=== PATIENT | male | born 1945 | race Caucasian/White ===

== ENCOUNTER 2019-12-07 11:52 | Inpatient (IN) ==
--- NOTE | 2019-12-07 12:11 | Emergency Department Note ---
Impression & Plan Atrial fibrillation with rapid ventricular response, COVID-19 ED Provider Note NAME: KEITH SHAIKH JR AGE: 74 SEX: M : 1945 ARRIVES VIA: Walk-In INFORMANT: Patient ED PROVIDER(S): Chepe Nunez DO CHIEF COMPLAINT: Short of breath HPI: Patient is a 74-year-old male who presents the ER for shortness of breath. This started a week ago. He feels very tired and rundown. With any exertion he becomes more short of breath. He is unable to lie flat. He denies any cough or runny nose. No chest pain. No belly pain. No nausea vomiting or diarrhea. No swelling in the legs. No other exacerbating or remitting factors. Was a previous smoker. No history of A. fib. He was seen by his PCP Wednesday and presented again today and had a EKG which showed A. fib with RVR was referred into the ER. ROS: See above HPI for pertinent positives & negatives. A total of 10 systems reviewed and were otherwise negative. PAST MEDICAL HISTORY:See Below PAST SURGICAL HISTORY:See Below FAMILY HISTORY:See Below SOCIAL HISTORY:See Below HOME MEDICATIONS:See Below ALLERGIES:See Below VITALS:See Below PHYSICAL EXAMINATION: GENERAL: Sitting up in bed, alert, well appearing, well nourished, no distress, non-toxic EYE EXAM: normal conjunctiva. OROPHARYNX: no exudate, no erythema, lips, buccal mucosa, and tongue normal and mucous membranes are moist NECK: supple, no nuchal rigidity, no adenopathy, non-tender LUNGS: Clear to auscultation. Normal chest wall mechanics HEART: Tachycardic and irregular regular S1 normal and S2 normal ABDOMEN: abdomen soft, non-tender, normo-active bowel sounds, no masses, no rebound or guarding. BACK: Back is symmetrical on inspection and there is no deformity, no midline tenderness, no CVA tenderness. SKIN: no rashes and no bruising UPPER EXTREMITIES: upper extremities are grossly normal. LOWER EXTREMITIES: No pitting edema. NEURO EXAM: Normal sensorium, cranial nerves II-XII grossly intact, normal speech, no gross weakness of arms, no gross weakness of legs. MEDICAL DECISION MAKING: Patient is a 74-year-old male who presents the ER to be in A. fib with RVR. IV was established blood work was obtained. Labs show no significant leukocytosis or anemia. INR was unremarkable. BMP with mild hyponatremia. LFTs bilirubin was unremarkable. Troponin was detectable but not positive. Lipase was normal. Initial EKG showed a left bundle branch block. No previous were able to be pulled up. I received a call from cardiology Dr. Corcoran who was concerned that this gentleman was having a STEMI from [facility] as he was reading the EKG from the office. Called Dr. Teran who evaluated the patient at bedside. The patient has not been having any chest pain. He was placed on a Cardizem drip and given a bolus. Heart rate trended down. Patient was evaluated by Dr. Richard. He was COVID positive. Chest x-ray was unremarkable. Discussed with the hospitalist patient was admitted for further work-up. Previous EKGs were reviewed from [facility] with the last one being performed in 2011 which had no left bundle. He was not taken to the [facility] emerg[facility] as symptoms have been prese nt for over a week and troponins were not elevated. 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 He was also placed on heparin drip and bolus after he declined any bleeding risk factors which were discussed at length at bedside. Was wearing appropriate PPE including N 95 and face protection throughout the entire stay. Triage Nursing notes reviewed. Prior medical records reviewed Vital Signs: reviewed and remarkable for tachycardic Differential diagnosis: Differential diagnoses includes but is not limited to acute coronary syndrome, myocardial infarction, pericarditis, pulmonary embolus, aortic dissection, pneumonia, pneumothorax, musculoskeletal, shingles, esophageal. ER treatment provided: See below Diagnostics interpreted by me: ECG: A. fib RVR rate of 134 Left axis Left bundle branch block ST depressions in the lateral leads Prolonged QTC Cardiac Monitoring: An order was placed for continuous cardiac monitoring. The monitor shows a rate of 135 with A. fib rhythm. Laboratory studies: As stated above and show below. Imaging studies: Portable AP upright 1 view of the chest shows no focal infiltrate. Consultation(s): Discussed with Dr. Teran who presented at bedside. Discussed with Dr. Richard who evaluated the patient. ED COURSE: Procedures: none Critical Care: I have personally spent 75 minutes of critical care time in the direct manage ment of this patient. This includes bedside care, interpretation of diagnostic studies, and testing, discussion with consultants, patient, and family members, and other required patient management activities. This 75 minutes is in excess of all separately billable procedures. Past Med/Surg History Medical History Benign prostatic hyperplasia Hypertension Surgical History Status post hernia repair Status post tonsillectomy Family History (Updated 12/07/19 @ 16:24 by Aguilar Valadez MD) Mother Heart disease Father Coronary heart disease Uncle Coronary heart disease Social History Smoking Status: Former smoker Tobacco Type: Cigarettes and Pipe Hx Alcohol Use: Yes Alcohol type: beer Hx Substance Use: No Preferred Language: Nepali Communication Ability: Effective Music Library Assistant Required: No Beliefs That Will Affect Care: None Current Living Situation: Family Current Living Situation Comment: pt lives with brother Other Information That Helps Us Care for You: No Feels Safe at Home: Yes Safety Concerns: Feels Safe At This Time Assistive Devices: Denture - Upper and Glasses Allergies Allergies Allergy/AdvReac Type Severity Reaction Status Date / Time No Known Allergies Allergy Unverified 12/07/19 13:43 Home Meds Home Medications Medication Instructions Recorded Confirmed lisinopril-hydrochlorothiazide 1 tab PO PM #0 tab 03/03/12 12/07/19 tamsulosin 0.4 mg PO PM #0 cap 03/03/12 12/07/19 multivitamin 1 tab PO PM #0 tab 03/15/12 12/07/19 meloxicam 15 mg PO PM 12/07/19 12/07/19 vitamin E 1 tab PO PM 12/07/19 12/07/19 Results & Data (ED) Vital Signs Vital Signs - 24 hr 12/07/19 11:55 12/07/19 12:02 12/07/19 12:07 Temperature 36.4 C L Temperature Source Oral Pulse Rate 138 H 136 H 129 H Pulse Rate from SpO2 Sensor Respiratory Rate 24 33 H 26 H Respiratory Effort / Characteristics Non-Labored Respiratory Depth Normal Blood Pressure 147/97 H 148/120 H Blood Pressure Mean 113 134 Pulse Oximetry 100 Oxygen Delivery Method Room Air Sepsis Recent Fever Within 48 Hours No Sepsis New/Unexplained Change in Mental Status N/A Sepsis Action Taken by Nursing No Action Required 12/07/19 12:10 12/07/19 12:20 12/07/19 12:30 Temperature Temperature Source Pulse Rate 121 H 147 H 134 H Pulse Rate from SpO2 Sensor 122 H Respiratory Rate 34 H 27 H 38 H Respiratory Effort / Characteristics Respiratory Depth Blood Pressure Blood Pressure Mean Pulse Oximetry 90 Oxygen Delivery Method Sepsis Recent Fever Within 48 Hours Sepsis New/Unexplained Change in Mental Status Sepsis Action Taken by Nursing 12/07/19 12:40 12/07/19 12:47 12/07/19 12:50 Temperature Temperature Source Pulse Rate 145 H 114 H 109 H Pulse Rate from SpO2 Sensor Respiratory Rate 30 H 33 H 24 Respiratory Effort / Characteristics Respiratory Depth Blood Pressure 98/87 L 108/79 Blood Pressure Mean 89 82 Pulse Oximetry 97 Oxygen Delivery Method Room Air Sepsis Recent Fever Within 48 Hours Sepsis New/Unexplained Change in Mental Status Sepsis Action Taken by Nursing 12/07/19 12:51 12/07/19 13:00 12/07/19 13:06 Temperature Temperature Source Pulse Rate 103 H 104 H 101 H Pulse Rate from SpO2 Sensor 104 H Respiratory Rate 26 H 25 H 28 H Respiratory Effort / Characteristics Respiratory Depth Blood Pressure 129/83 Blood Pressure Mean 102 Pulse Oximetry 94 Oxygen Delivery Method Sepsis Recent Fever Within 48 Hours Sepsis New/Unexplained Change in Mental Status Sepsis Action Taken by Nursing 12/07/19 13:10 12/07/19 13:15 12/07/19 13:20 Temperature Temperature Source Pulse Rate 109 H 94 H 109 H Pulse Rate from SpO2 Sensor Respiratory Rate 30 H 24 30 H Respiratory Effort / Characteristics Respiratory Depth Blood Pressure 126/100 Blood Pressure Mean 109 Pulse Oximetry Oxygen Delivery Method Sepsis Recent Fever Within 48 Hours Sepsis New/Unexplained Change in Mental Status Sepsis Action Taken by Nursing 12/07/19 13:30 12/07/19 13:31 12/07/19 13:40 Temperature Temperature Source Pulse Rate 114 H 110 H 132 H Pulse Rate from SpO2 Sensor 70 Respiratory Rate 19 27 H 25 H Respiratory Effort / Characteristics Respiratory Depth Blood Pressure 106/82 Blood Pressure Mean 84 Pulse Oximetry Oxygen Delivery Method Sepsis Recent Fever Within 48 Hours Sepsis New/Unexplained Change in Mental Status Sepsis Action Taken by Nursing 12/07/19 13:44 12/07/19 13:50 12/07/19 14:00 Temperature Temperature Source Pulse Rate 121 H 110 H 118 H Pulse Rate from SpO2 Sensor 94 H Respiratory Rate 27 H 29 H 22 Respiratory Effort / Characteristics Respiratory Depth Blood Pressure 128/93 116/81 Blood Pressure Mean 97 85 Pulse Oximetry Oxygen Delivery Method Sepsis Recent Fever Within 48 Hours Sepsis New/Unexplained Change in Mental Status Sepsis Action Taken by Nursing 12/07/19 14:01 12/07/19 14:10 12/07/19 14:15 Temperature Temperature Source Pulse Rate 100 H 123 H Pulse Rate from SpO2 Sensor Respiratory Rate 23 22 27 H Respiratory Effort / Characteristics Respiratory Depth Blood Pressure 128/93 Blood Pressure Mean 99 Pulse Oximetry Oxygen Delivery Method Sepsis Recent Fever Within 48 Hours Sepsis New/Unexplained Change in Mental Status Sepsis Action Taken by Nursing 12/07/19 14:16 12/07/19 14:20 12/07/19 14:30 Temperature Temperature Source Pulse Rate 124 H 127 H Pulse Rate from SpO2 Sensor 107 H 122 H 131 H Respiratory Rate 25 H 27 H Respiratory Effort / Characteristics Respiratory Depth Blood Pressure 143/99 H Blood Pressure Mean 119 Pulse Oximetry 92 94 97 Oxygen Delivery Method Sepsis Recent Fever Within 48 Hours Sepsis New/Unexplained Change in Mental Status Sepsis Action Taken by Nursing 12/07/19 14:31 Temperature Temperature Source Pulse Rate Pulse Rate from SpO2 Sensor 145 H Respiratory Rate Respiratory Effort / Characteristics Respiratory Depth Blood Pressure Blood Pressure Mean Pulse Oximetry 91 Oxygen Delivery Method Sepsis Recent Fever Within 48 Hours Sepsis New/Unexplained Change in Mental Status Sepsis Action Taken by Nursing Laboratory Data Result diagrams: 12/07/19 12:56 12/07/19 12:56 Lab Results 12/07/19 12/07/19 12/07/19 Range/Units 12:56 12:56 12:56 WBC 6.21 (4.8-10.8) K/uL RBC 4.12 L (4.7-6.1) M/uL Hgb 13.2 L (14.0-18.0) g/dL Hct 38.3 L (42-52) % MCV 93.0 (80-100) fL MCH 32.0 (25-34) pg MCHC 34.5 (32-36) g/dL RDW Std Deviation 44.4 (36.4-46.3) fL RDW Coeff of Shabnam 13.0 (11.5-14.5) % Plt Count 242 (130-400) K/uL MPV 10.1 (7.4-10.4) fL Immature Gran % (Auto) 0.2 % Neut % (Auto) 80.9 % Lymph % (Auto) 7.4 % [place] % (Auto) 11.3 % Eos % (Auto) 0.0 % Baso % (Auto) 0.2 % Neut # (Auto) 5.03 (1.4-6.5) K/uL Lymph # (Auto) 0.46 L (1.2-3.4) K/uL [place] # (Auto) 0.70 H (0.11-0.59) K/uL Eos # (Auto) 0.00 (0-0.5) K/uL Baso # (Auto) 0.01 (0-0.2) K/uL Immature Gran # (Auto) 0.01 (0.00-0.02) K/uL PT 11.0 (9.0-12.0) Seconds INR 1.0 (0.9-1.1) APTT 35.2 H (21.0-31.0) Seconds PTT Ratio 1.3 Sodium 130 L (136-145) mmol/L Potassium 4.8 (3.5-5.1) mmol/L Chloride 100 (98-107) mmol/L Carbon Dioxide 22 (21-32) mmol/L Anion Gap 8.0 (3-11) BUN 20 H (7-18) mg/dl Creatinine 0.89 (0.6-1.4) mg/dl Est Cr Clr Drug Dosing 68.7 ml/min Est GFR ( Amer) 99.0 Est GFR (Non-Af Amer) 85.4 BUN/Creatinine Ratio 22.0 H (10-20) Glucose 99 (70-99) mg/dl Calcium 9.4 (8.5-10.1) mg/dl Total Bilirubin 0.5 (0.2-1) mg/dl AST 55 H (15-37) U/L ALT 58 (12-78) U/L Alkaline Phosphatase 99 (45-117) U/L Troponin I 0.034 (0-0.045) ng/ml Total Protein 7.1 (6.4-8.2) gm/dl Albumin 3.6 (3.4-5.0) gm/dl Globulin 3.5 (2.5-4.0) gm/dl Albumin/Globulin Ratio 1.0 (0.9-2) Lipase 71 L (73-393) U/L COVID-19 Eval Order Hepatitis C Ab Screen (Neg) SARS-CoV-2, RNA, NAAT (NEGATIVE) 12/07/19 12/07/19 12/07/19 Range/Units 13:02 13:35 13:35 WBC (4.8-10.8) K/uL RBC (4.7-6.1) M/uL Hgb (14.0-18.0) g/dL Hct (42-52) % MCV (80-100) fL MCH (25-34) pg MCHC (32-36) g/dL RDW Std Deviation (36.4-46.3) fL RDW Coeff of Shabnam (11.5-14.5) % Plt Count (130-400) K/uL MPV (7.4-10.4) fL Immature Gran % (Auto) % Neut % (Auto) % Lymph % (Auto) % [place] % (Auto) % Eos % (Auto) % Baso % (Auto) % Neut # (Auto) (1.4-6.5) K/uL Lymph # (Auto) (1.2-3.4) K/uL [place] # (Auto) (0.11-0.59) K/uL Eos # (Auto) (0-0.5) K/uL Baso # (Auto) (0-0.2) K/uL Immature Gran # (Auto) (0.00-0.02) K/uL PT (9.0-12.0) Seconds INR (0.9-1.1) APTT (21.0-31.0) Seconds PTT Ratio Sodium (136-145) mmol/L Potassium (3.5-5.1) mmol/L Chloride (98-107) mmol/L Carbon Dioxide (21-32) mmol/L Anion Gap (3-11) BUN (7-18) mg/dl Creatinine (0.6-1.4) mg/dl Est Cr Clr Drug Dosing ml/min Est GFR ( Amer) Est GFR (Non-Af Amer) BUN/Creatinine Ratio (10-20) Glucose (70-99) mg/dl Calcium (8.5-10.1) mg/dl Total Bilirubin (0.2-1) mg/dl AST (15-37) U/L ALT (12-78) U/L Alkaline Phosphatase (45-117) U/L Troponin I (0-0.045) ng/ml Total Protein (6.4-8.2) gm/dl Albumin (3.4-5.0) gm/dl Globulin (2.5-4.0) gm/dl Albumin/Globulin Ratio (0.9-2) Lipase (73-393) U/L COVID-19 Eval [facility] Ab Screen Neg (Neg) SARS-CoV-2, RNA, NAAT POSITIVE A* (NEGATIVE) Administered Medications Diltiazem HCl 125 mg/ Dextrose 125 mls @ 10 mls/hr IV .[id number] [facility]; Protocol Stop: 01/06/20 12:29 Last Titration: 12/07/19 18:57 Dose: 5 mg/hr, 5 mls/hr Documented by: [id number] Cosigned by: [id number] Titration: 12/07/19 16:52 Dose: 10 mg/hr, 10 mls/hr Documented by: [id number] Cosigned by: [id number] Titration: 12/07/19 14:04 Dose: 7.5 mg/hr, 7.5 mls/hr Documented by: [id number] Cosigned by: [id number] Admin: 12/07/19 13:00 Dose: 5 mg/hr, 5 mls/hr Documented by: [id number] Cosigned by: [id number] Heparin Sodium/Dextrose (Heparin Sodium/Dextrose) 25,000 units in 500 mls @ 16 mls/hr IV .Q24H [facility]; Protocol Stop: 01/06/20 14:14 Last Admin: 12/07/19 14:46 Dose: 800 units/hr, 16 mls/hr Documented by: [id number] Cosigned by: [id number] Discontinued Medications Diltiazem HCl (Diltiazem Hcl 5 Mg/Ml 5 Ml Vial) 10 mg IV NOW STA Stop: 12/07/19 12:26 Last Admin: 12/07/19 12:42 Dose: 10 mg Documented by: [id number] Cosigned by: [id number] Heparin Sodium (Porcine) (Heparin Sod (Porcine) 1000 Unit/Ml 10 Ml Vial) Confirm Administered Dose 10,000 units .ROUTE .STK-MED ONE Stop: 12/07/19 14:27 Last Admin: 12/07/19 14:46 Dose: 4,000 units Documented by: [id number] Cosigned by: [id number] Heparin Sodium/Dextrose (Heparin Iv Low Dose With Bolus) 1 ea IV NOW STA; Protocol Stop: 12/07/19 14:15 Last Admin: 12/07/19 14:46 Dose: 1 ea Documented by: [id number] Digoxin 125 mcg/ Syringe 10 mls @ 2 mls/min IV TODAY@1645 ONE Stop: 12/07/19 16:49 Last Admin: 12/07/19 17:36 Dose: 2 mls/min Documented by: [id number] Metoprolol Tartrate (Metoprolol Tartrate 25 Mg Tab) 25 mg PO NOW ONE Stop: 12/07/19 15:32 Last Admin: 12/07/19 17:37 Dose: 25 mg Documented by: [id number] Miscellaneous (Stat Iv Infusion Titration Per Protocol) 1 ea N/A NOW STA Stop: 12/07/19 12:26 Last Admin: 12/07/19 13:01 Dose: 1 ea Documented by: [id number] Discharge Plan Visit Data Chief Complaint: Arrhythmia/Palpitations Stated Complaint: NEW ONSET OF AFIB SENT BY DR ED Provider: Chepe Nunez Discharge Problem: Atrial fibrillation with rapid ventricular response, COVID-19 Patient Disposition: Admitted As Inpatient Discharge Instructions Interventions: ED Discharge Assessment Last Done: 12/07/19 15:42
[2019-12-07] MEDS ORDERED: dilTIAZem HCl 5 MG/ML 5 ML VIAL IV STA (12:25)
[2019-12-07] MEDS ORDERED: STAT IV Infusion **Titration per Protocol STA (12:25)
[2019-12-07] MEDS: dilTIAZem HCL 125 MG in DEXTROSE 5% 100 ML IV SCH (13:00)
--- NOTE | 2019-12-07 13:04 | XRay Report ---
XR chest 1V portable HISTORY: Atypical Chest Pain COMPARISON: None. FINDINGS: Cardiac silhouette is mildly enlarged. Calcified granuloma at the right lung base. No focal lung consolidations to suggest pneumonia. No evidence for pulmonary edema. Advanced degenerative miryam nges within the right glenohumeral joint. No pleural effusions. No pneumothorax. IMPRESSION: Mild cardiomegaly. Otherwise, no acute process within the chest. ACT 112: Negative or not required by law. Electronically signed by: Henry Briones M.D. 12/07/2019 1:03 PM
[2019-12-07 13:16] LABS: Basophils # (auto) 0.01 K/uL (0-0.2); Basophils % (auto) 0.2 %; Hematocrit (blood only) 38.3 % (42-52); Hemoglobin 13.2 g/dL (14.0-18.0); Immature Granulocytes # (auto) 0.01 K/uL (0.00-0.02); Immature Granulocytes % (auto) 0.2 %; Lymphocytes # (auto) 0.46 K/uL (1.2-3.4); Lymphocytes % (auto) 7.4 %; Mean Corpuscular Hgb Conc 34.5 g/dL (32-36); Mean Platelet Volume 10.1 fL (7.4-10.4); Monocytes % (auto) 11.3 %; Neutrophils # (auto) 5.03 K/uL (1.4-6.5); Neutrophils % (auto) 80.9 %; Platelet Count 242 K/uL (130-400); RDW Standard Deviation 44.4 fL (36.4-46.3); Red Blood Count 4.12 M/uL (4.7-6.1); White Blood Count 6.21 K/uL (4.8-10.8)
[2019-12-07 13:25] LABS: Partial Thromboplastin Ratio 1.3; Partial Thromboplastin Time 35.2 Seconds (21.0-31.0)
[2019-12-07 13:36] LABS: Albumin Level 3.6 gm/dl (3.4-5.0); Calcium 9.4 mg/dl (8.5-10.1); Creatinine Clr Calc Pharmacy 68.7 ml/min; Est GFR (Non-African American) 85.4; Potassium 4.8 mmol/L (3.5-5.1)
[2019-12-07 13:43] LABS: Bilirubin,Total 0.5 mg/dl (0.2-1); Globulin 3.5 gm/dl (2.5-4.0); Total Protein 7.1 gm/dl (6.4-8.2); Troponin I 0.034 ng/ml (0-0.045)
[2019-12-07] MEDS ORDERED: Heparin IV Low Dose WITH Bolus IV STA (14:14)
[2019-12-07] MEDS ORDERED: HEPARIN SOD (PORCINE) 1000 UNIT/ML 10 ML VIAL ONE (14:26)
[2019-12-07] MEDS ORDERED: Heparin BOLUS **ED Use Only IV STA (14:28)
[2019-12-07] MEDS: HEPARIN SODIUM/DEXTROSE 25,000 UNITS/500 ML BAG IV SCH (14:46)
[2019-12-07] MEDS ORDERED: METOPROLOL TARTRATE 25 MG TAB PO ONE (15:31)
--- NOTE | 2019-12-07 15:51 | History & Physical Report ---
Date of Service December 07, 2019 Assessment & Plan (1) Atrial fibrillation with rapid ventricular response: Presented with atrial fibrillation with rapid ventricular response. History of hypertension; no other history of cardiovascular disease. K normal. Mg and TSH pending. Troponin normal, so acute DC unlikely. Normal RV on echo makes large pulmonary embolism unlikely (but must still consider thromboembolic disease in light of COVID-19 diagnosis). Cardiology consulted. Started on diltiazem infusion in ED for rate control; start metoprolol and wean off diltiazem. [id number] score = 3. 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 (2) Cardiomyopathy: Echo demonstrated global hypokinesis left ventricular with LVEF of 20%. COVID-related myocarditis unlikely with normal troponin. May have tachycardia-mediated cardiomyopathy. Management of AF as noted above. Continue lisinopril. Diuretic therapy per Cardiology. (3) Hypertension: History of hypertension treated with lisinopril + HCTZ. Now with AF and cardiomyopathy. Starting metoprolol for rate control. Continue lisinopril. (4) COVID-19: SARS-CoV-2 PCR performed as preop screen for possible cardiac cath and was positive. Onset dyspnea and mild cough about 7 days prior to admission. No fever. Lymphopenia (460) consistent with COVID-19. ? mild interstitial prominence on chest x-ray. Dyspnea and tachypnea could be secondary to COVID-19 or cardiac issues. O2 sats fluctuated in ED between 90 and 100% on RA. Does not appear to meet criteria for COVID-specific therapies at this time. Check CRP, procalcitonin, BNP, ferritin, D-dimer with next labs. Consult ID for their input. (5) Benign prostatic hyperplasia: Continue tamsulosin. (6) DVT prophylaxis: IV heparin initially for atrial fibrillation. (7) Discharge planning issues: Anticipated discharge to home. Family Medicine follow-up with Dr. Cam. Follow-up with [facility]iology. History of Present Illness Chief Complaint: shortness of breath Primary Care Provider: Mark Cam MD 74 YO male followed by Dr. Cam for Family Medicine. History of hypertension and other problems noted below. Strong family history of coronary artery disease. He was in his usual state of health until 11/29 when he developed some dyspnea. Dyspnea worsened and he developed a mild nonproductive cough. No fever. He was prescribed azithromycin on 12/03 for suspected bronchitis. Dyspnea has worsened. Now experiencing both orthopnea and dyspnea with minimal exertion. No chest pain. No dependent edema. ? mild palpitations. Persistent nonproductive cough. Seen in clinic today and found to be in new-onset atrial fibrillation. Referred to ED for evaluation and Cardiology was consulted. SARS-CoV-2 PCR was performed as preop screening in case cardiac cath was indicated; it was positive. No known exposure to COVID-19. Allergies Allergy/AdvReac Type Severity Reaction Status Date / Time No Known Allergies Allergy Unverified 12/07/19 13:43 Home Medications Home Medications Medication Instructions Recorded Confirmed Type lisinopril-hydrochlorothiazide 1 tab PO PM #0 tab 03/03/12 12/07/19 History tamsulosin 0.4 mg PO PM #0 cap 03/03/12 12/07/19 History multivitamin 1 tab PO PM #0 tab 03/15/12 12/07/19 History meloxicam 15 mg PO PM 12/07/19 12/07/19 History vitamin E 1 tab PO PM 12/07/19 12/07/19 History Past Med/Surg History Medical History Benign prostatic hyperplasia Hypertension Surgical History Status post hernia repair Status post tonsillectomy Family History (Updated 12/07/19 @ 16:24 by Aguilar Valadez MD) Mother Heart disease Father Coronary heart disease Uncle Coronary heart disease Social History Smoking Status: Former smoker Tobacco Type: Cigarettes and Pipe Hx Alcohol Use: Yes Alcohol type: beer Hx Substance Use: No Preferred Language: Greenlandic Communication Ability: Effective 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 Beliefs That Will Affect Care: None Current Living Situation: Family Current Living Situation Comment: pt lives with brother Other Information That Helps Us Care for You: No Feels Safe at Home: Yes Safety Concerns: Feels Safe At This Time Assistive Devices: Denture - Upper and Glasses Review of Systems Constitutional: + malaise and + weight loss (has lost about 8 lbs over past year); no fever Ear, Nose, Mouth, Throat: no sore throat Respiratory: as per Subjective / HPI Cardiovascular: as per Subjective / HPI Gastrointestinal: no nausea, no vomiting, no constipation, no diarrhea/loose stools, no blood in stools and no melena Genitourinary: + nocturia (2x); no dysuria Musculoskeletal: + joint pain; no myalgia Integumentary: no rash and no new lesions Neurologic: no headache(s) Endocrine: no polydipsia and no polyuria Hematologic / Lymphatic: no easy bleeding, no easy bruising and no lymphadenopathy Physical Exam Constitutional: WD/WN, vitals as above no acute distress Eyes: PERRL, conjunctivae normal, anicteric sclerae ENMT: external ear and nose normal, oropharynx normal Neck: trachea midline, no thyromegaly Respiratory: normal respiratory effort, lungs clear to auscultation Cardiovascular: Rate/Rhythm: + tachycardic and + irregularly irregular Heart Sounds: + murmur (II/ sys murmur at base and LSB); no gallop and no cardiac rub Vessels: no JVD Extremities: normal capillary refill; no calf tenderness and no edema Gastrointestinal (Abdomen): normal bowel sounds, soft, nontender, no hepatosplenomegaly Musculoskeletal: Head/Neck/Chest: neck supple Extremities: strength 5/5 throughout; no cyanosis and no clubbing Skin: no rashes, warm and dry Neurologic: PERRL, EOMI no facial palsy no dysarthria or aphasia patellar DTR's 2/2 bilat Psychiatric: Orientation: alert and oriented x 3 Affect: euthymic affect Lymphatic: no cervical lymphadenopathy Results & Data Results & Data ([facility]) Vital Signs (Past 12 Hours) Vital Signs Temp Pulse Resp BP Pulse Ox 12/07/19 15:44 112 H 31 H 113/83 93 12/07/19 15:30 124 H 27 H 91/85 L 92 12/07/19 15:15 118 H 33 H 147/92 H 96 12/07/19 15:04 135 H 24 131/106 H 12/07/19 15:00 111 H 27 H 141/101 H 12/07/19 14:50 123 H 28 H 12/07/19 14:46 127 H 25 H 140/99 12/07/19 14:40 120 H 27 H 12/07/19 14:31 91 12/07/19 14:30 143/99 H 97 12/07/19 14:20 127 H 27 H 94 12/07/19 14:16 124 H 25 H 92 12/07/19 14:15 123 H 27 H 128/93 12/07/19 14:10 22 12/07/19 14:01 100 H 23 12/07/19 14:00 118 H 22 116/81 12/07/19 13:50 110 H 29 H 12/07/19 13:44 121 H 27 H 128/93 12/07/19 13:40 132 H 25 H 12/07/19 13:31 110 H 27 H 12/07/19 13:30 114 H 19 106/82 12/07/19 13:20 109 H 30 H 12/07/19 13:15 94 H 24 126/100 12/07/19 13:10 109 H 30 H 12/07/19 13:06 101 H 28 H 129/83 12/07/19 13:00 104 H 25 H 94 12/07/19 12:51 103 H 26 H 12/07/19 12:50 109 H 24 108/79 12/07/19 12:47 114 H 33 H 98/87 L 12/07/19 12:40 145 H 30 H 97 12/07/19 12:30 134 H 38 H 90 12/07/19 12:20 147 H 27 H 12/07/19 12:10 121 H 34 H 12/07/19 12:07 129 H 26 H 12/07/19 12:02 136 H 33 H 148/120 H 12/07/19 11:55 36.4 C L 138 H 24 147/97 H 100 Laboratory Results Laboratory Results - last 24 hr 12/07/19 12/07/19 12/07/19 12:56 12:56 12:56 WBC 6.21 RBC 4.12 L Hgb 13.2 L Hct 38.3 L MCV 93.0 MCH 32.0 MCHC 34.5 RDW Std Deviation 44.4 RDW Coeff of Shabnam 13.0 Plt Count 242 MPV 10.1 Immature Gran % (Auto) 0.2 Neut % (Auto) 80.9 Lymph % (Auto) 7.4 [place] % (Auto) 11.3 Eos % (Auto) 0.0 Baso % (Auto) 0.2 Neut # (Auto) 5.03 Lymph # (Auto) 0.46 L [place] # (Auto) 0.70 H Eos # (Auto) 0.00 Baso # (Auto) 0.01 Immature Gran # (Auto) 0.01 PT 11.0 INR 1.0 APTT 35.2 H PTT Ratio 1.3 Sodium 130 L Potassium 4.8 Chloride 100 Carbon Dioxide 22 Anion Gap 8.0 BUN 20 H Creatinine 0.89 Est Cr Clr Drug Dosing 68.7 Est GFR ( Amer) 99.0 Est GFR (Non-Af Amer) 85.4 BUN/Creatinine Ratio 22.0 H Glucose 99 Calcium 9.4 Total Bilirubin 0.5 AST 55 H ALT 58 Alkaline Phosphatase 99 Troponin I 0.034 Total Protein 7.1 Albumin 3.6 Globulin 3.5 Albumin/Globulin Ratio 1.0 Lipase 71 L COVID-19 Eval Order SARS-CoV-2, RNA, NAAT 12/07/19 12/07/19 13:35 13:35 WBC RBC Hgb Hct MCV MCH MCHC RDW Std Deviation RDW Coeff of Shabnam Plt Count MPV Immature Gran % (Auto) Neut % (Auto) Lymph % (Auto) [place] % (Auto) Eos % (Auto) Baso % (Auto) Neut # (Auto) Lymph # (Auto) [place] # (Auto) Eos # (Auto) Baso # (Auto) Immature Gran # (Auto) PT INR APTT PTT Ratio Sodium Potassium Chloride Carbon Dioxide Anion Gap BUN Creatinine Est Cr Clr Drug Dosing Est GFR ( Amer) Est GFR (Non-Af Amer) BUN/Creatinine Ratio Glucose Calcium Total Bilirubin AST ALT Alkaline Phosphatase Troponin I Total Protein Albumin Globulin Albumin/Globulin Ratio Lipase COVID-19 Eval Order Covid19 [facility]Now [facility] SARS-CoV-2, RNA, NAAT POSITIVE A* Diagnostic Findings PORTABLE CHEST X-RAY Reviewed by the undersigned and formally interpreted by Radiology: FINDINGS: Cardiac silhouette is mildly enlarged. Calcified granuloma at the right lung base. No focal lung consolidations to suggest pneumonia. No evidence for pulmonary edema. Advanced degenerative changes within the right glenohumeral joint. No pleural effusions. No pneumothorax. IMPRESSION: Mild cardiomegaly. Otherwise, no acute process within the chest. Electronically signed by: Henry Briones M.D. 12/07/2019 1:03 PM ECG Additional Comments: EKG performed at 1232 reviewed and demonstrated AF at 130 / min, left axis deviation, nonspecific intraventricular conduction delay, nonspecific ST / T- waves changes most pronounces laterally. Code Status & VTE Plan Code Status Advance directives discussed with patient; he believes that he did a living will years ago. He indicates that he would like resuscitation attempted in the event of a cardiopulmonary arrest if there is a reasonable chance of a meaningful recovery. However, he would not want extraordinary measures initiated or continued if prognosis is poor. VTE Prophylaxis Plan VTE Prophylaxis will be ordered: Yes
--- NOTE | 2019-12-07 16:13 | Cardiology Consultation ---
Date of Consultation December 07, 2019 Assessment & Plan (1) Atrial fibrillation with rapid ventricular response: (2) LBBB (left bundle branch block): (3) Left ventricular systolic dysfunction: (4) COVID-19: The patient has received an IV diltiazem infusion, with mild improvement in the ventricular rate down to the low 100s. An echocardiogram was performed revealing severe left ventricular systolic dysfunction, LVEF of less than 20%. The right ventricular chamber size was normal, and with the exception of the interventricular septum, the rest of the right ventricular function is normal without evidence of pulmonary hypertension. Mild mitral regurgitation and mild tricuspid regurgitation present. The patient does not describe symptoms suggestive of unstable angina, and I do not think he is having acute coronary syndrome. Although his troponin is not undetectable, it is elevated to an indeterminate level at 0.034 Ng/ml. Believe that if the patient was having an acute COVID-19 related myocarditis, his troponin would be significantly more elevated. I question if the left ventricular systolic function may not be an acute development, but that perhaps the patient has developed COVID-19 and subsequently went into atrial fibrillation causing an abrupt change in his previously stable clinical status. On my personal inspection of his chest x-ray, he appears to have some fluid in the horizontal fissure, I do not think he has rachelle pulmonary edema or pneumonia. I do not think acute diuresis is indicated at present. I recommend transitioning to oral beta-lizz. Starting with metoprolol tartrate for ease of titration, 25 mg p.o. x1 now, and 12.5 mg p.o. every 6 ho urs thereafter. As beta-lizz is initiated, my hope is to titrate down the diltiazem due to its negative inotropic effects. Further rate control with digoxin will also be considered. Unfractioned heparin has been started for stroke and systemic thrombotic prophylaxis. His prior to hospital treatment with lisinopril will be continued. As discussed with Dr. Valadez, he is currently not hypoxic. He is to be admitted to the telemetry unit or ICU pending bed availability, negative pressure room. Further recommendations will be forthcoming as his hospital stay develops. History of Present Illness History of Present Illness Yobany Plasencia Jr is a 74-year-old male with a past medical history of hypertension, BPH, osteoporosis, and polymyalgia rheumatica seen in cardiology consultation due to newly recognized atrial fibrillation with rapid ventricular response, left bundle branch block, cardiomyopathy with severe left ventricular systolic dysfunction, and COVID-19 illness. He is on lisinopril 20 mg daily for hypertension. 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 He notes shortness of breath onset a week ago 11/30/2019. On 11/24/2019 he had been seen by family practice at [facility] and was treated with azithromycin. Due to persistent symptoms he returned again today. EKG revealed atrial fibrillation with rapid ventricular response of 129 bpm with left bundle branch block, QRS duration 140 ms. Repolarization changes were noted consistent with left bundle branch block. The only prior EKG available on file on him in the [facility] system and per review of the [facility] record dates back to 2011 at which time normal sinus rhythm at 67 bpm, with a borderline nonspecific IVCD was noted. He denies any recent fevers or chills. Work-up thus far in the emergency department included a SARS-CoV-2 RNA test that was positive consistent with underlying COVID-19 illness. He notes having a cough previously, but not recently within the last few days. He is afebrile. Family History: Father of "heart disease "specifics unknown at the age of 75. He also has a family history of heart disease in his uncle, details unknown. Social History: Previous smoker, but quit many years ago, does not drink alcohol. As noted, lives with his brother on a farm. Allergies Allergy/AdvReac Type Severity Reaction Status Date / Time No Known Allergies Allergy Unverified 12/07/19 13:43 Home Medications Home Medications Medication Instructions Recorded Confirmed Type lisinopril-hydrochlorothiazide 1 tab PO PM #0 tab 03/03/12 12/07/19 History tamsulosin 0.4 mg PO PM #0 cap 03/03/12 12/07/19 History multivitamin 1 tab PO PM #0 tab 03/15/12 12/07/19 History meloxicam 15 mg PO PM 12/07/19 12/07/19 History vitamin E 1 tab PO PM 12/07/19 12/07/19 History Patient History Medical History Benign prostatic hyperplasia Hypertension Surgical History Status post hernia repair Status post tonsillectomy Family History (Updated 12/07/19 @ 16:24 by Aguilar Valadez MD) Mother Heart disease Father Coronary heart disease Uncle Coronary heart disease Social History Smoking Status: Former smoker Tobacco Type: Cigarettes and Pipe Feels Safe at Home: Yes Review of Systems Review of Systems: All systems reviewed & are unremarkable except as noted in HPI & below Physical Exam Physical Exam: Temp Pulse Resp BP Pulse Ox 36.4 C L 112 H 31 H 113/83 93 12/07/19 11:55 12/07/19 15:44 12/07/19 15:44 12/07/19 15:44 12/07/19 15:44 Respiratory: No accessory muscles use No cough observed Minimally elevated respiratory rate Pulse oximetry 95% on room air with patient wearing a cloth facial covering Neuro: Awake and oriented x 3. Fluent speed Appropriate cognition Moves all 4 extremities. Results & Data ([facility]) Vital Signs (Past 12 Hours) Vital Signs Temp Pulse Resp BP Pulse Ox 12/07/19 15:44 112 H 31 H 113/83 93 12/07/19 15:30 124 H 27 H 91/85 L 92 12/07/19 15:15 118 H 33 H 147/92 H 96 12/07/19 15:04 135 H 24 131/106 H 12/07/19 15:00 111 H 27 H 141/101 H 12/07/19 14:50 123 H 28 H 12/07/19 14:46 127 H 25 H 140/99 12/07/19 14:40 120 H 27 H 12/07/19 14:31 91 12/07/19 14:30 143/99 H 97 12/07/19 14:20 127 H 27 H 94 12/07/19 14:16 124 H 25 H 92 12/07/19 14:15 123 H 27 H 128/93 12/07/19 14:10 22 12/07/19 14:01 100 H 23 12/07/19 14:00 118 H 22 116/81 12/07/19 13:50 110 H 29 H 12/07/19 13:44 121 H 27 H 128/93 12/07/19 13:40 132 H 25 H 12/07/19 13:31 110 H 27 H 12/07/19 13:30 114 H 19 106/82 12/07/19 13:20 109 H 30 H 12/07/19 13:15 94 H 24 126/100 12/07/19 13:10 109 H 30 H 12/07/19 13:06 101 H 28 H 129/83 12/07/19 13:00 104 H 25 H 94 12/07/19 12:51 103 H 26 H 12/07/19 12:50 109 H 24 108/79 12/07/19 12:47 114 H 33 H 98/87 L 12/07/19 12:40 145 H 30 H 97 12/07/19 12:30 134 H 38 H 90 12/07/19 12:20 147 H 27 H 12/07/19 12:10 121 H 34 H 12/07/19 12:07 129 H 26 H 12/07/19 12:02 136 H 33 H 148/120 H 12/07/19 11:55 36.4 C L 138 H 24 147/97 H 100 Laboratory Results Cardiac Enzymes 12/07/19 Range/Units 12:56 AST 55 H (15-37) U/L Troponin I 0.034 (0-0.045) ng/ml Coagulation 12/07/19 Range/Units 12:56 PT 11.0 (9.0-12.0) Seconds APTT 35.2 H (21.0-31.0) Seconds CBC 12/07/19 Range/Units 12:56 WBC 6.21 (4.8-10.8) K/uL RBC 4.12 L (4.7-6.1) M/uL Hgb 13.2 L (14.0-18.0) g/dL Hct 38.3 L (42-52) % Plt Count 242 (130-400) K/uL Neut # (Auto) 5.03 (1.4-6.5) K/uL Lymph # (Auto) 0.46 L (1.2-3.4) K/uL [place] # (Auto) 0.70 H (0.11-0.59) K/uL Eos # (Auto) 0.00 (0-0.5) K/uL Baso # (Auto) 0.01 (0-0.2) K/uL Comprehensive Metabolic Panel 12/07/19 Range/Units 12:56 Sodium 130 L (136-145) mmol/L Potassium 4.8 (3.5-5.1) mmol/L Chloride 100 (98-107) mmol/L Carbon Dioxide 22 (21-32) mmol/L BUN 20 H (7-18) mg/dl Creatinine 0.89 (0.6-1.4) mg/dl Glucose 99 (70-99) mg/dl Calcium 9.4 (8.5-10.1) mg/dl AST 55 H (15-37) U/L ALT 58 (12-78) U/L Alkaline Phosphatase 99 (45-117) U/L Total Protein 7.1 (6.4-8.2) gm/dl Albumin 3.6 (3.4-5.0) gm/dl Intake and Output 12/07/19 12/07/19 12/07/19 06:59 14:59 22:59 Intake Total 5.333 / 5.333 Balance 5.333 / 5.333 Intake: IV 5.333 / 5.333 Cardizem 125 mg In D5 100 ml @ 5.333 / 5.333 5 MG/HR 5 mls/hr IV .Q24H [facility] Rx#:[id number] Other: Weight 64.7 kg Patient Weight 12/08/19 06:59 Weight 64.7 kg
[2019-12-07] MEDS ORDERED: ACETAMINOPHEN 325 MG TAB PO PRN (16:21)
[2019-12-07] MEDS ORDERED: DIGOXIN 125 MCG in SYRINGE 9.5 ML IV ONE (16:45)
[2019-12-07] MEDS ORDERED: METOPROLOL TARTRATE 25 MG TAB PO SCH (17:00)
[2019-12-07 21:35] LABS: Partial Thromboplastin Ratio > 5.0
[2019-12-07 21:44] LABS: C Reactive Protein 2.92 mg/dl (0-0.29); Ferritin 763.8 ng/ml (8-388); Magnesium 1.9 mg/dl (1.8-2.4); Thyroid Stimulating Hormone 1.92 uIu/ml (0.300-4.500); Troponin I 0.051 ng/ml (0-0.045)
[2019-12-07 21:47] LABS: Partial Thromboplastin Time > 139.0 Seconds (21.0-31.0)
[2019-12-07 21:48] LABS: D Dimer 530 ug/L FEU (0-500)
[2019-12-07] MEDS: TAMSULOSIN HCL 0.4 MG CAP PO SCH (21:52)
[2019-12-07] MEDS: METOPROLOL TARTRATE 25 MG TAB PO SCH (21:53)
[2019-12-07 23:19] LABS: Partial Thromboplastin Ratio 1.7
[2019-12-07 23:23] LABS: Partial Thromboplastin Time 48.7 Seconds (21.0-31.0)
[2019-12-08] MEDS: dilTIAZem HCL 125 MG in DEXTROSE 5% 100 ML IV SCH (00:14)
[2019-12-08] MEDS ORDERED: METOPROLOL TARTRATE 1 MG/ML VIAL IV STA (02:21)
[2019-12-08] MEDS ORDERED: METOPROLOL TARTRATE 25 MG TAB PO STA (04:22)
--- NOTE | 2019-12-08 05:58 | Electrocardiogram Report ---
Test Reason : Blood Pressure : / mmHG Vent. Rate : 134 BPM Atrial Rate : 153 BPM P-R Int : 000 ms QRS Dur : 134 ms QT Int : 352 ms P-R-T Axes : 000 -73 091 degrees QTc Int : 525 ms Atrial fibrillation with rapid ventricular response Left axis deviation Non-specific intra-ventricular conduction block Possible Anterior infarct Lateral infarct , age undetermined Abnormal ECG No previous ECGs available Confirmed by Bryan Freeman ([id number]) on 12/08/2019 5:58:26 AM Referred By: REFERRED SELF Confirmed By:Bryan Freeman
--- NOTE | 2019-12-08 06:09 | Electrocardiogram Report ---
Test Reason : Blood Pressure : / mmHG Vent. Rate : 100 BPM Atrial Rate : 340 BPM P-R Int : 000 ms QRS Dur : 136 ms QT Int : 386 ms P-R-T Axes : 000 -62 107 degrees QTc Int : 497 ms Atrial fibrillation Left axis deviation Non-specific intra-ventricular conduction block Possible Anterior infarct T wave abnormality, consider lateral ischemia Abnormal ECG When compared with ECG of 07-DEC-2019 12:32, No significant change was found Confirmed by Bryan Freeman ([id number]) on 12/08/2019 6:08:34 AM Referred By: REFERRED SELF Confirmed By:Bryan Freeman
[2019-12-08 06:20] LABS: Hematocrit (blood only) 37.4 % (42-52); Mean Corpuscular Hemoglobin 32.2 pg (25-34); Mean Corpuscular Hgb Conc 34.8 g/dL (32-36); Mean Corpuscular Volume 92.6 fL (80-100); Mean Platelet Volume 10.7 fL (7.4-10.4); Platelet Count 251 K/uL (130-400); RDW Coefficient of Variation 13.1 % (11.5-14.5); RDW Standard Deviation 44.5 fL (36.4-46.3); Red Blood Count 4.04 M/uL (4.7-6.1); White Blood Count 5.83 K/uL (4.8-10.8)
[2019-12-08 06:39] LABS: Partial Thromboplastin Ratio 1.7
[2019-12-08 06:45] LABS: Partial Thromboplastin Time 48.6 Seconds (21.0-31.0)
[2019-12-08 06:54] LABS: BUN Creatinine Ratio 27.3 (10-20); Calcium 8.7 mg/dl (8.5-10.1); Creatinine Clr Calc Pharmacy 66.9 ml/min; Est GFR (Non-African American) 85.4; Potassium 4.2 mmol/L (3.5-5.1)
[2019-12-08 06:59] LABS: Troponin I 0.044 ng/ml (0-0.045)
[2019-12-08] MEDS: METOPROLOL TARTRATE 25 MG TAB PO SCH ×3 (08:12→19:58)
[2019-12-08] MEDS: lisinopril 10 MG TAB PO SCH (08:13)
[2019-12-08] MEDS ORDERED: AMIODARONE 200 MG TAB PO ONE (09:15)
--- NOTE | 2019-12-08 10:50 | Cardiology Progress Note ---
Date of Service December 08, 2019 Assessment & Plan (1) COVID-19: (2) Left ventricular systolic dysfunction: (3) Atrial fibrillation with rapid ventricular response: Minimally elevated troponin level of 0.051 NG per mL last evening, reduced to 0.044 ng/ml this am. proBNP level elevated at 3979 PG per mL. I would speculate that the patient has a pre-existing cardiomyopathy in the setting of left bundle branch block as I would expect his troponin to be higher if this was an acute COVID-19 related myocarditis. He was in atrial fibrillation for an undetermined amount of time. Tachycardia was not observed at the time of his family practice visit on 12/04/2019, blood present yesterday, converted just before 7 AM this morning. Diltiazem infusion has been discontinued. Will add amiodarone, will initiation, in an effort to maintain sinus rhythm, as he certainly is at risk for going back in atrial fibrillation given his low ejection fraction I do not think he will tolerate this well. Change metoprolol tartrate to 25 mg 3 times daily, amiodarone 200 mg 3 times daily with meals. Depending on upon patient's heart rates, will titrate beta-lizz with eventual plans to transition him to metoprolol succinate given severe left ventricular systolic dysfunction. EKG performed this morning revealed sinus rhythm with left bundle branch block and resultant repolarization changes, QRS duration 148 ms. Continue lisinopril 10 mg daily, have been on 20 mg prior to hospital stay, but his blood pressure is little on the lower side, I think it is reasonable to lower the lisinopril to make room for the metoprolol. Continue anticoagulation for stroke prophylaxis from an atrial fibrillation standpoint as well as for thrombotic prophylaxis from a COVID-19 standpoint. Ideally, would be best to transition him to Eliquis 5 mg p.o. twice daily. [facility], and therefore there may be cost considerations to this regard. I have discussed transition to Eliquis with Dr. Valadez, and I also asked for case management's help in trying to determine his [id number] cost for the Eliquis. Sodium 127 this morning. Need to trend this. In terms of amiodarone surveillance, baseline AST is mildly elevated at 55 units/L, TSH within normal limits. Will repeat CMP tomorrow. Admission and Anticipated Discharge Date Admission Date: December 07, 2019 Subjective Patient states he feels improved this morning. On telemetry, atrial fibrillation had persisted overnight last night with ultimate conversion to sinus rhythm at 6:52 AM this morning. Follow-up EKG performed 12/08/2019 at 901 revealed sinus rhythm at 76 bpm with left bundle branch block diffuse resultant repolarization changes. QRS duration 148 ms. Review of Systems Review of Systems: Although states his respiratory distress is improved subjectively, the patient had been noted to have a hypoxia with pulse oximetry as low as 81% on room air, he is therefore now on 3 L nasal cannula. Physical Exam Physical Exam: Temp Pulse Resp BP Pulse Ox 36.6 C 76 20 113/83 93 12/08/19 08:20 12/08/19 10:14 12/08/19 08:20 12/08/19 10:14 12/08/19 10:14 General: Patient in no acute distress. Pulse oximetry did decline to 81% despite 3 L nasal cannula with conversation Results & Data ([facility]) Vital Signs (Past 12 Hours) Vital Signs Temp Pulse Pulse Pulse Resp BP BP 12/08/19 10:14 76 113/83 12/08/19 09:44 72 109/85 12/08/19 09:14 74 113/73 12/08/19 08:44 79 122/85 12/08/19 08:20 36.6 C 92 H 20 113/91 12/08/19 08:15 84 113/91 12/08/19 07:44 64 108/82 12/08/19 07:14 87 108/85 12/08/19 04:15 36.5 C 132 H 20 114/89 12/08/19 02:50 98/65 L 12/08/19 02:42 130 H 109/89 12/08/19 02:25 109/89 12/07/19 23:34 36.6 C 90 18 125/78 Pulse Ox 12/08/19 10:14 93 12/08/19 09:44 82 L 12/08/19 09:14 92 12/08/19 08:44 92 12/08/19 08:20 93 12/08/19 08:15 89 L 12/08/19 07:44 87 L 12/08/19 07:14 81 L 12/08/19 04:15 91 12/08/19 02:50 12/08/19 02:42 12/08/19 02:25 12/07/19 23:34 92 Laboratory Results Cardiac Enzymes 12/07/19 12/07/19 12/08/19 Range/Units 12:56 20:57 05:19 AST 55 H (15-37) U/L Troponin I 0.034 0.051 H* 0.044 (0-0.045) ng/ml Coagulation 12/07/19 12/07/19 12/07/19 Range/Units 12:56 20:57 22:43 PT 11.0 (9.0-12.0) Seconds APTT 35.2 H > 139.0 H* 48.7 H* (21.0-31.0) Seconds 12/08/19 Range/Units 05:19 PT (9.0-12.0) Seconds APTT 48.6 H* (21.0-31.0) Seconds Lipids 12/08/19 Range/Units 05:19 Triglycerides 47 (0-150) mg/dl Cholesterol 150 (0-200) mg/dl HDL Cholesterol 81 mg/dl Cholesterol/HDL Ratio 2 CBC 12/07/19 12/08/19 Range/Units 12:56 05:19 WBC 6.21 5.83 (4.8-10.8) K/uL RBC 4.12 L 4.04 L (4.7-6.1) M/uL Hgb 13.2 L 13.0 L (14.0-18.0) g/dL Hct 38.3 L 37.4 L (42-52) % Plt Count 242 251 (130-400) K/uL Neut # (Auto) 5.03 (1.4-6.5) K/uL Lymph # (Auto) 0.46 L (1.2-3.4) K/uL [place] # (Auto) 0.70 H (0.11-0.59) K/uL Eos # (Auto) 0.00 (0-0.5) K/uL Baso # (Auto) 0.01 (0-0.2) K/uL Comprehensive Metabolic Panel 12/07/19 12/08/19 Range/Units 12:56 05:19 Sodium 130 L 127 L (136-145) mmol/L Potassium 4.8 4.2 (3.5-5.1) mmol/L Chloride 100 96 L (98-107) mmol/L Carbon Dioxide 22 20 L (21-32) mmol/L BUN 20 H 24 H (7-18) mg/dl Creatinine 0.89 0.89 (0.6-1.4) mg/dl Glucose 99 103 H (70-99) mg/dl Calcium 9.4 8.7 (8.5-10.1) mg/dl AST 55 H (15-37) U/L ALT 58 (12-78) U/L Alkaline Phosphatase 99 (45-117) U/L Total Protein 7.1 (6.4-8.2) gm/dl Albumin 3.6 (3.4-5.0) gm/dl Intake and Output 12/07/19 12/08/19 12/08/19 22:59 06:59 14:59 Intake Total 272.166 / 583.666 306.167 / 583.666 23.900 / 23.900 Output Total 50 / 450 400 / 450 Balance 222.166 / 133.666 -93.833 / 133.666 23.900 / 23.900 Intake: IV 172.166 / 283.666 106.167 / 283.666 23.900 / 23.900 HEPARIN SODIUM/DEXTROSE 25,000 113.333 / 217.333 104 / 217.333 10.4 / 10.4 units In 500 ml @ 800 UNITS/HR 16 mls/hr IV .Q24H DEMETRIS Rx#: [id number] Cardizem 125 mg In D5 100 ml @ 58.833 / 66.333 2.167 / 66.333 13.500 / 13.500 0 MG/HR IV .Q0M DEMETRIS Rx#: [id number] Oral 100 / 300 200 / 300 Output: Urine 50 / 450 400 / 450 Other: Weight 63.231 kg 63 kg Weight Measurement Method Standing Scale Built in [facility]
--- NOTE | 2019-12-08 10:55 | Electrocardiogram Report ---
Test Reason : Blood Pressure : / mmHG Vent. Rate : 076 BPM Atrial Rate : 076 BPM P-R Int : 184 ms QRS Dur : 148 ms QT Int : 456 ms P-R-T Axes : 054 006 141 degrees QTc Int : 513 ms Sinus rhythm with Premature atrial complexes Possible Left atrial enlargement Left bundle branch block Abnormal ECG When compared with ECG of 07-DEC-2019 13:28, Sinus rhythm has replaced Atrial fibrillation QRS axis Shifted right Confirmed by Stefano Doe ([id number]) on 12/08/2019 10:55:33 AM Referred By: REFERRED SELF Confirmed By:Stefano Doe
[2019-12-08] MEDS ORDERED: POTASSIUM CHLORIDE 10 MEQ TABCR PO ONE (12:10)
[2019-12-08] MEDS ORDERED: FUROSEMIDE 20 MG in SYRINGE 0 ML IV ONE (12:30)
--- NOTE | 2019-12-08 13:53 | XRay Report ---
XR chest 1V portable HISTORY: COVID, CHF, worsening hypoxia COMPARISON: Chest 12/07/2019. FINDINGS: Interval development of patchy bilateral airspace opacities seen within the mid to lower francine ng zones. The heart is mildly enlarged. No pneumothorax. No pleural effusions. Calcific granuloma not ed within the right lung base. Degenerative changes again noted within the right shoulder. IMPRESSION: Interval development of patchy bilateral airspace opacities likely representing an atypical pneumonia . ACT 112: Negative or not required by law. Electronically signed by: Henry Briones M.D. 12/08/2019 1:52 PM
[2019-12-08] MEDS: AMIODARONE 200 MG TAB PO SCH ×2 (13:56→17:01)
--- NOTE | 2019-12-08 14:00 | Pulmonary Consultation ---
Date of Consultation December 08, 2019 Assessment & Plan (1) COVID-19: (2) Acute respiratory failure with hypoxia: Chest x-ray 12/08/2019 personally reviewed: Portable film, bilateral alveolar infiltrate appreciated diffuse, costophrenic angles are not clearly visualized, enlarged cardiac silhouette. Patient had a chest x-ray done on 12/07/2019 which did not show any significant alveolar infiltrate. Given the significant worsening in 1 day pulmonary edema will be high in differential. --Acute hypoxic respiratory failure Multifactorial I think there is a high component of being plagued by systolic CHF with EF 20% which will worsen with A. fib on presentation COVID-19 pneumonia might also be playing a role Given the acute worsening on the chest x-ray in 1 day pulmonary edema is way higher in differential. NT BNP: 3979 COVID-19: Positive on 12/07/2019, ferritin 764, CRP 3.92, procalcitonin less than 0.05 Plan: Continue with O2 supplementation to keep oxygen saturation 88-92%. In a patient who has low ejection fraction I would recommend going to BiPAP 12/6 and titrating FiO2 to above O2 saturation rather than going to high flow. Distal improved the transmyocardial pressure and help with ejection fraction as well. It is okay to give the patient dexamethasone 6 mg for total of 10 days starting today. I do not think patient will be a good candidate for convalescent plasma given t he patient is fluid overloaded. If there is no improvement in the saturation with diuretics and BiPAP then it is okay to give remdesivir for total of 5 days keeping in mind patient's renal function and LFTs. Recommend strict in and out and aim for negative balance with diuresis. Overall prognosis is guarded given the history of ejection fraction 20% and patient being admitted with hyponatremia and A. fib with RVR which increases the mortality significantly. Case was discussed with Dr. Valadez and Nancy PEDRAZA Pulmonary will follow peripherally. Please call with any questions. Please note the above document was generated using voice recognition software. It may contain grammatical, syntax or spelling errors.Any formal questions or concerns about the content, text or information contained within the body of this dictation should be directly addressed to the provider for clarification. (3) Atrial fibrillation with rapid ventricular response: History of Present Illness Attending Physician: Aguilar Valadez MD 74-year-old male with past medical history of systolic CHF EF 20%, hypertension presented to the hospital with complaints of worsening shortness of breath and mild nonproductive cough. He was on azithromycin since 12/04/2015 for suspected bronchitis Patient had an outpatient COVID-19 PCR sent for other screening for possible cardiac cath which came out to be positive Patient was found to be in A. fib with RVR in the ED. He was started on diltiazem drip. Since coming to the hospital on 12/07/2019 today there was worsening on the chest x-ray as well as need for oxygen requirement. Pulmonary were consulted for the same. Patient is currently requiring 4 L nasal cannula to keep O2 saturation 88%. Breathing in the mid 20s. Allergies Allergy/AdvReac Type Severity Reaction Status Date / Time No Known Allergies Allergy Unverified 12/07/19 13:43 Home Medications Home Medications Medication Instructions Recorded Confirmed Type lisinopril-hydrochlorothiazide 1 tab PO PM #0 tab 03/03/12 12/07/19 History tamsulosin 0.4 mg PO PM #0 cap 03/03/12 12/07/19 History multivitamin 1 tab PO PM #0 tab 03/15/12 12/07/19 History meloxicam 15 mg PO PM 12/07/19 12/07/19 History vitamin E 1 tab PO PM 12/07/19 12/07/19 History Patient History Medical History Benign prostatic hyperplasia Hypertension Surgical History Status post hernia repair Status post tonsillectomy Family History (Updated 12/07/19 @ 16:24 by Aguilar Valadez MD) Mother Heart disease Father Coronary heart disease Uncle Coronary heart disease Social History Smoking Status: Former smoker Tobacco Type: Cigarettes and Pipe Hx Alcohol Use: Yes Alcohol type: beer Hx Substance Use: No Preferred Language: Ethiopian Communication Ability: Effective Pupil Personnel Services Director Required: No Beliefs That Will Affect Care: None Current Living Situation: Family Current Living Situation Comment: pt lives with brother Other Information That Helps Us Care for You: No Feels Safe at Home: Yes Safety Concerns: Feels Safe At This Time Assistive Devices: Oxygen - Continuous Review of Systems Review of Systems: Other Deferred Physical Exam Physical Exam: Patient not examined due to coronavirus restrictions and attempts to minimize exposure to staff and consider PPE. Please refer to the hospitalist exam for complete details. Results & Data Results & Data ([facility]) Vital Signs (Past 12 Hours) Vital Signs Temp Pulse Pulse Pulse Resp BP BP 12/08/19 13:00 64 12/08/19 12:00 79 12/08/19 11:49 69 107/87 12/08/19 11:00 72 119/84 12/08/19 10:14 76 113/83 12/08/19 09:44 72 109/85 12/08/19 09:14 74 113/73 12/08/19 08:44 79 122/85 12/08/19 08:20 36.6 C 92 H 20 113/91 12/08/19 08:15 84 113/91 12/08/19 07:44 64 108/82 12/08/19 07:14 87 108/85 12/08/19 06:53 78 12/08/19 04:15 36.5 C 132 H 20 114/89 12/08/19 02:50 98/65 L 12/08/19 02:42 130 H 109/89 12/08/19 02:25 109/89 Pulse Ox 12/08/19 13:00 12/08/19 12:00 12/08/19 11:49 12/08/19 11:00 88 L 12/08/19 10:14 93 12/08/19 09:44 82 L 12/08/19 09:14 92 12/08/19 08:44 92 12/08/19 08:20 93 12/08/19 08:15 89 L 12/08/19 07:44 87 L 12/08/19 07:14 81 L 12/08/19 06:53 12/08/19 04:15 91 12/08/19 02:50 12/08/19 02:42 12/08/19 02:25 PG Care Time/CCT Total # of Minutes Spent Total Time Spent with Patient: Total time spent is greater than 50% in coordination of care (as documented) at patient's floor/unit and/or counseling patient: Coding Level of Care Code 52150 Initial Inpt Care Lvl 2 Diagnoses COVID-19 U07.1 Acute respiratory failure with hypoxia J96.01 Atrial fibrillation with rapid ventricular response I48.91
[2019-12-08] MEDS: dexAMETHasone 6 MG in SYRINGE 0 ML IV SCH (16:05)
[2019-12-08] MEDS: HEPARIN SODIUM/DEXTROSE 25,000 UNITS/500 ML BAG IV SCH (17:00)
[2019-12-08] MEDS ORDERED: FUROSEMIDE 40 MG/4 ML VIAL IV ONE (18:50)
[2019-12-08] MEDS ORDERED: FUROSEMIDE 40 MG in SYRINGE 0 ML IV ONE (19:00)
[2019-12-08] MEDS: TAMSULOSIN HCL 0.4 MG CAP PO SCH (19:57)
[2019-12-08] MEDS ORDERED: REMDESIVIR 200 mg: Day 1 IV ONE (20:00)
--- NOTE | 2019-12-08 20:04 | Hospitalist Progress Note ---
Date of Service December 08, 2019 Assessment & Plan (1) Acute respiratory failure with hypoxia: Presented with nonproductive cough and dyspnea. Has COVID-19 as well as cardiomyopathy. Worsening oxygenation since admission with associated bilateral pulmonary infiltrates. O2 sats 81% on RA. Suspect COVID pneumonia + CHF; separate problems are discussed below. Continue supplemental O2 as needed. Pulmonary Medicine recommends BiPAP if oxygenation worsens for benefit of positive pressure. (2) COVID-19: SARS-CoV-2 PCR performed as preop screen for possible cardiac cath and was positive. Onset dyspnea and mild cough about 7 days prior to admission. No fever at home, but low grade temp since admission. Worsening oxygenation and worsening pulmonary infiltrates consistent with COVID pneumonia. ID and Pulmonary Medicine consulted. Meet criteria for COVID-specific therapies given worsening respiratory status. COVID-19 labs: SARS-CoV-2 PCR positive 12/06 lymphocytes 460 CRP 292 procalcitonin < 0.05 ferritin 763 D-dimer 530 COVID-specific therapies: dexamethasone 6 mg daily for up to 10 days remdesivir x 5 days; Pulm Med approval obtained; EUA info given to pt; daily LFT's ordered convalescent plasma- will defer, at least at this time, due to fluid overload (3) Pneumonia due to COVID-19 virus: As discussed above. (4) Atrial fibrillation with rapid ventricular response: Presented with atrial fibrillation with rapid ventricular response. History of hypertension; no other history of cardiovascular disease. K, Mg, and TSH normal. Troponin only minimally elevated, so acute TN unlikely. Normal RV on echo makes large pulmonary embolism unlikely (but must still consider thromboembolic disease in light of COVID-19 diagnosis). Cardiology consulted. Started on diltiazem infusion in ED for rate control. Started metoprolol and weaned off diltiazem. [id number] score = 3. Started on IV heparin in ED; discuss skilled nursing anticoagulation options with patient and Cardiology. Converted to NSR. Amiodarone therapy initiated to maintain NSR. (5) Cardiomyopathy: Echo demonstrated global hypokinesis left ventricular with LVEF of 20%. COVID-related myocarditis unlikely with normal troponin. May have tachycardia-mediated cardiomyopathy. Management of AF as noted above. Continue lisinopril. Diuretic therapy per Cardiology. (6) CHF (congestive heart failure): Echo demonstrated global hypokinesis left ventricular with LVEF of 20%. COVID-related myocarditis unlikely with normal troponin. Duration of AF uncertain; may have tachycardia-mediated cardiomyopathy. Worsening pulmonary infiltrates- suspect pulmonary edema + COVID pneumonia. Pro-BNP elevated. Acute left ventricular systolic heart failure. Continue lisinopril. Started on metoprolol tartrate with anticipated conversion to metoprolol succinate. IV furosemide as needed. (7) Hypertension: History of hypertension treated with lisinopril + HCTZ. Now with AF and cardiomyopathy. Starting metoprolol for rate control. Continue lisinopril. (8) Benign prostatic hyperplasia: Continue tamsulosin. (9) DVT prophylaxis: IV heparin initially for atrial fibrillation. (10) Discharge planning issues: Anticipated discharge to home. Family Medicine follow-up with Dr. Cam. Follow-up with [facility]. Admission and Anticipated Discharge Date Admission Date: December 07, 2019 Subjective Recheck for COVID-19, AF, and other problems. Patient seen in their room around 1040. Comfortable night. Converted to NSR this morning. O2 sats as low as 81% on RA this morning. Now maintaining sats on 3 L NC. Rare nonproductive cough. Does not feel dyspneic at rest. No chest pain, palpitations, edema. Review of Systems: Constitutional- no fever. Cardiac- as noted above. Pulmonary- as noted above. GI- no nausea, vomiting, diarrhea, melena, hematochezia. - chronic hesitancy and nocturia. Otherwise, as noted above. Physical Exam Constitutional: + ill appearing Eyes: + anicteric sclerae Respiratory: + tachypneic Auscultation: + rales Cardiovascular: Rate/Rhythm: regular rhythm Heart Sounds: + murmur (II/ sys murmur at base and LSB); no gallop (non appreciated, but exam limited) and no cardiac rub (none appreciated, but exam limited) Vessels: + JVD Extremities: normal capillary refill; no calf tenderness and no edema Gastrointestinal (Abdomen): normal bowel sounds, soft, nontender, no hepatosplenomegaly Musculoskeletal: Extremities: no cyanosis and no clubbing Psychiatric: Orientation: alert and oriented x 3 Affect: euthymic affect Results & Data Results & Data ([facility]) Vital Signs (Past 12 Hours) Vital Signs 12/08/19 09:14 74 113/73 92 12/08/19 08:44 79 122/85 92 12/08/19 08:20 36.6 C 92 H 20 113/91 93 12/08/19 08:15 84 113/91 89 L Laboratory Results Laboratory Results - last 24 hr 12/07/19 12/07/19 12/07/19 20:57 20:57 20:57 WBC RBC Hgb Hct MCV MCH MCHC RDW Std Deviation RDW Coeff of Shabnam Plt Count MPV ESR 7 APTT > 139.0 H* PTT Ratio > 5.0 D-Dimer 530 H* Sodium Potassium Chloride Carbon Dioxide Anion Gap BUN Creatinine Est Cr Clr Drug Dosing Est GFR ( Amer) Est GFR (Non-Af Amer) BUN/Creatinine Ratio Glucose Calcium Magnesium 1.9 Ferritin 763.8 H Troponin I 0.051 H* C-Reactive Protein 2.92 H NT-Pro-B Natriuret Pep 3979 H Triglycerides Cholesterol LDL Cholesterol, Calc VLDL Cholesterol, Calc HDL Cholesterol Cholesterol/HDL Ratio Procalcitonin TSH 1.920 12/07/19 12/07/19 12/08/19 20:57 22:43 05:19 WBC RBC Hgb Hct MCV MCH MCHC RDW Std Deviation RDW Coeff of Shabnam Plt Count MPV ESR APTT 48.7 H* PTT Ratio 1.7 D-Dimer Sodium 127 L Potassium 4.2 Chloride 96 L Carbon Dioxide 20 L Anion Gap 11.0 BUN 24 H Creatinine 0.89 Est Cr Clr Drug Dosing 66.9 Est GFR ( Amer) 99.0 Est GFR (Non-Af Amer) 85.4 BUN/Creatinine Ratio 27.3 H Glucose 103 H Calcium 8.7 Magnesium Ferritin Troponin I 0.044 C-Reactive Protein NT-Pro-B Natriuret Pep Triglycerides 47 Cholesterol 150 LDL Cholesterol, Calc 60 VLDL Cholesterol, Calc 9 HDL Cholesterol 81 Cholesterol/HDL Ratio 2 Procalcitonin < 0.05 TSH 12/08/19 12/08/19 12/08/19 05:19 05:19 05:19 WBC 5.83 RBC 4.04 L Hgb 13.0 L Hct 37.4 L MCV 92.6 MCH 32.2 MCHC 34.8 RDW Std Deviation 44.5 RDW Coeff of Shabnam 13.1 Plt Count 251 MPV 10.7 H ESR APTT 48.6 H* PTT Ratio 1.7 D-Dimer Sodium Potassium Chloride Carbon Dioxide Anion Gap BUN Creatinine Est Cr Clr Drug Dosing Est GFR ( Amer) Est GFR (Non-Af Amer) BUN/Creatinine Ratio Glucose Calcium Magnesium Ferritin Troponin I C-Reactive Protein NT-Pro-B Natriuret Pep 4886 H Triglycerides Cholesterol LDL Cholesterol, Calc VLDL Cholesterol, Calc HDL Cholesterol Cholesterol/HDL Ratio Procalcitonin TSH Diagnostic Findings PORTABLE CHEST X-RAY Reviewed by the undersigned and formally interpreted by Radiology: FINDINGS: Interval development of patchy bilateral airspace opacities seen within the mid to lower lung zones. The heart is mildly enlarged. No pneumothorax. No pleural effusions. Calcific granuloma noted within the right lung base. Degenerative changes again noted within the right shoulder. IMPRESSION: Interval development of patchy bilateral airspace opacities likely representing an atypical pneumonia. Electronically signed by: Henry Briones M.D. 12/08/2019 1:52 PM ECG Additional Comments: EKG performed at 0901 reviewed and demonstrated NSR at 76 / min, LBBB, [id number]'s..
[2019-12-08] MEDS: LORazepam 0.25 MG/0.5 ML VIAL IV PRN (20:31)
[2019-12-08] MEDS: NSS 30mL Flush, Days 1-5 IV SCH (23:00)
[2019-12-09] MEDS: HEPARIN SODIUM/DEXTROSE 25,000 UNITS/500 ML BAG IV SCH (00:50)
[2019-12-09] MEDS: LORazepam 0.25 MG/0.5 ML VIAL IV PRN (01:05)
[2019-12-09] MEDS ORDERED: MoRPHine SULFATE 2 MG/ML CARP IV STA ×2 (04:31→05:51)
[2019-12-09] MEDS ORDERED: FUROSEMIDE 40 MG/4 ML VIAL IV ONE (07:09)
[2019-12-09] MEDS ORDERED: FUROSEMIDE 40 MG in SYRINGE 0 ML IV ONE (07:15)
--- NOTE | 2019-12-09 07:28 | XRay Report ---
XR chest 1V portable CLINICAL HISTORY: COVID-19, CHF COMPARISON STUDY: 12/08/2019 FINDINGS: The heart remains enlarged. There are worsening bilateral pulmonary airspace opacities. The re are no significant pleural effusions. No pneumothorax is visualized.[ IMPRESSION: Progressive bilateral pulmonary airspace opacities, consistent with a worsening multifoca l pneumonia ACT 112: Negative or not required by law. Electronically signed by: Santana Solano M.D. 12/09/2019 7:27 AM
[2019-12-09 07:37] LABS: Hematocrit (blood only) 40.5 % (42-52); Mean Corpuscular Hgb Conc 34.6 g/dL (32-36); Mean Corpuscular Volume 92.7 fL (80-100); Mean Platelet Volume 11.1 fL (7.4-10.4); Platelet Count 254 K/uL (130-400); RDW Coefficient of Variation 13.1 % (11.5-14.5); RDW Standard Deviation 44.4 fL (36.4-46.3); Red Blood Count 4.37 M/uL (4.7-6.1); White Blood Count 14.56 K/uL (4.8-10.8)
[2019-12-09] MEDS: ENOXAPARIN INJ 60 MG/0.6 ML SYR SC SCH ×2 (07:48→20:08)
[2019-12-09] MEDS: dexAMETHasone 6 MG in SYRINGE 0 ML IV SCH (07:49)
[2019-12-09 08:03] LABS: Partial Thromboplastin Ratio 1.8
[2019-12-09 08:08] LABS: BUN Creatinine Ratio 39.9 (10-20); Bilirubin Direct 0.2 mg/dl (0-0.2); Calcium 8.9 mg/dl (8.5-10.1); Creatinine Clr Calc Pharmacy 53.3 ml/min; Est GFR (African American) 75.7; Est GFR (Non-African American) 65.3; Potassium 4.1 mmol/L (3.5-5.1)
[2019-12-09 08:11] LABS: Albumin Globulin Ratio 0.8 (0.9-2); Bilirubin,Total 0.5 mg/dl (0.2-1); Globulin 3.6 gm/dl (2.5-4.0); Total Protein 6.6 gm/dl (6.4-8.2)
--- NOTE | 2019-12-09 08:24 | Pulmonology Progress Note ---
Date of Service December 09, 2019 Assessment & Plan (1) Pneumonia due to COVID-19 virus: Impression: 74-year-old male presenting with cardiomyopathy, diffuse pulmonary infiltrates, hypoxemic respiratory failure, and COVID-19 infection. Recommendations: 1. Acute hypoxemic respiratory failure: Secondary to combinations of fluid overload as well as viral pneumonia. Will see if we can transition the patient to high flow oxygen today. If he is poorly tolerant, will revert back to noninvasive positive pressure ventilation. We will also try self pronating to see if we can improve VQ mismatch. Maintain oxygen saturations above 90%. 2. COVID pneumonia: Patient currently receiving Remdesivir as well as dexamethasone. Complete 10-day dexamethasone course and 5-day course of Remdesivir. Would not recommend convalescent plasma given his volume issues currently 3. Diffuse pulmonary infiltrates. Its difficult to ascertain how much of this is related to viral pneumonia and how much could be potentially related to fluid overload. Superimposed bacterial pneumonia is certainly a possibility however the patient's procalcitonin on presentation was normal. Will start empiric antibiotics to cover pneumonia given the patient's fragile state. Continue diuresis under the direction of cardiology and the patient's primary care provider with close attention to renal function. 4. Acute systolic heart failure: Patient will require an ischemic evaluation at some point however his COVID infection complicates this. For anticoagulation and blood pressure medications to cardiology and primary service. 5. The patient appears to be doing reasonably well on BiPAP currently. We will see how he does on high flow nasal cannula and potentially with self pronating. He does not appear to require intubation or mechanical ventilation currently but is certainly at risk of clinical decompensation. We will continue to follow closely with you (2) CHF (congestive heart failure): (3) Acute respiratory failure with hypoxia: Admission and Anticipated Discharge Date Admission Date: December 07, 2019 Subjective Patient seen and examined. EMR reviewed. Discussed with off going back tender cloth printing and with respiratory therapy and bedside nurse. The patient has been on BiPAP overnight. He reports that his breathing is okay. He is not experiencing any chest pain or palpitations. He had a Song placed due to urinary retention overnight. Review of Systems Review of Systems: Unchanged from prior Physical Exam Constitutional: + ill appearing Neck: trachea midline, no thyromegaly Respiratory: + labored breathing Auscultation: + crackles, + rhonchi and + wheezes Cardiovascular: RRR, no murmur, no edema Gastrointestinal (Abdomen): normal bowel sounds, soft, nontender, no hepatosplenomegaly Musculoskeletal: Extremities: extremities normal to inspection Skin: no rashes, warm and dry Neurologic: Nonfocal exam Lymphatic: no cervical lymphadenopathy Results & Data Results & Data ([facility]) Vital Signs (Past 12 Hours) Vital Signs Temp Pulse Pulse Resp BP BP Pulse Ox 12/09/19 08:04 36.9 C 79 26 H 139/102 H 96 12/09/19 08:00 74 12/09/19 07:25 87 30 H 137/106 H 97 12/09/19 07:18 84 25 H 98 12/09/19 03:39 36.5 C 84 32 H 136/97 94 12/09/19 00:00 36.1 C L 76 69 112/86 93 12/08/19 23:30 72 20 93 Laboratory Results 12/09/19 05:47 12/09/19 05:47 BNP 4886 up from 3979 I/O: -879 Diagnostic Findings Chest x-ray from today was independently reviewed and compared to prior studies. There has been some progression of the right-sided airspace opacities with the left side appearing relatively normal. PG Care Time/CCT Total # of Minutes Spent Total Time Spent with Patient: Total time spent is greater than 50% in coordination of care (as documented) at patient's floor/unit and/or counseling patient: Coding Level of Care Code 47883 Subseq Hosp Care Lvl 3 Diagnoses Pneumonia due to COVID-19 virus U07.1; J12.89 CHF (congestive heart failure) I50.9 Acute respiratory failure with hypoxia J96.01
[2019-12-09] MEDS: METOPROLOL TARTRATE 25 MG TAB PO SCH ×3 (08:36→20:07)
[2019-12-09] MEDS: AMIODARONE 200 MG TAB PO SCH ×3 (08:36→17:55)
[2019-12-09] MEDS: lisinopril 10 MG TAB PO SCH (08:37)
[2019-12-09 08:41] LABS: Partial Thromboplastin Time 49.8 Seconds (21.0-31.0)
[2019-12-09] MEDS: DOXYCYCLINE HYCLATE 100 MG CAP PO SCH ×2 (09:28→20:08)
[2019-12-09] MEDS: cefTRIAXone SODIUM 1,000 MG in DEXTROSE 5% 50 ML IV SCH (09:28)
--- NOTE | 2019-12-09 12:20 | Cardiology Progress Note ---
Date of Service December 09, 2019 Assessment & Plan (1) COVID-19: (2) Paroxysmal atrial fibrillation: (3) Acute systolic CHF (congestive heart failure), NYHA class 4: (4) Acute respiratory failure with hypoxia: (5) LBBB (left bundle branch block): Maintain negative fluid balance. Patient received 1 dose of IV Lasix, 40 mg yesterday. Scheduled to receive an additional dose today. Follow fluid balance, daily weight, GFR, electrolytes. Consider additional 40 mg Lasix this evening pending review of urine output and ongoing assessment of respiratory status. I will continue to monitor telemetry for recurrent episodes of atrial fibrillation. Continue oral amiodarone 200 mg 3 times daily and metoprolol 25 mg 3 times daily. Lisinopril 10 mg daily will be continued for the time being. Lovenox ordered for anticoagulation. Respiratory support with high flow oxygen, BiPAP, and medical treatment with remdesivir and corticosteroids as per direction of internal medicine and costume shop coordinator. Admission and Anticipated Discharge Date Admission Date: December 07, 2019 Subjective Case discussed with hospitalist attending. Respiratory status declining over the past 24 hours, however, stable on high flow oxygen. Has not tolerated BiPAP. Received dose of intravenous Lasix yesterday with approximately 1 L diuresis. Renal function remains stable, however, trending upward slightly. Patient converted to normal sinus rhythm. No recurrent atrial fibrillation overnight. Anticoagulation transition from heparin to Lovenox. Repeat chest x- ray demonstrates progressive bilateral pulmonary airspace opacities consistent with worsening multifocal pneumonia. Results & Data ([facility]) Vital Signs (Past 12 Hours) Vital Signs Temp Pulse Pulse Pulse Resp BP BP 12/09/19 11:20 75 23 12/09/19 08:28 85 26 H 12/09/19 08:04 36.9 C 79 26 H 139/102 H 12/09/19 08:00 74 12/09/19 07:25 87 30 H 137/106 H 12/09/19 07:18 84 25 H 12/09/19 03:39 36.5 C 84 32 H 136/97 Pulse Ox 12/09/19 11:20 94 12/09/19 08:28 95 12/09/19 08:04 96 12/09/19 08:00 12/09/19 07:25 97 12/09/19 07:18 98 12/09/19 03:39 94
--- NOTE | 2019-12-09 20:06 | Hospitalist Progress Note ---
Date of Service December 09, 2019 Assessment & Plan (1) Acute respiratory failure with hypoxia: Presented with nonproductive cough and dyspnea. Has COVID-19 as well as cardiomyopathy. Worsening oxygenation since admission with associated bilateral pulmonary infiltrates. O2 sats as low as 81% on RA 12/07. Suspect COVID pneumonia + CHF; separate problems are discussed below. Continue supplemental O2 +/- BiPAP as needed. (2) COVID-19: SARS-CoV-2 PCR performed as preop screen for possible cardiac cath and was positive. Onset dyspnea and mild cough about 7 days prior to admission. No fever at home, but low grade temp since admission. Worsening oxygenation and worsening pulmonary infiltrates consistent with COVID pneumonia. ID and Pulmonary Medicine consulted. Met criteria for COVID-specific therapies given worsening respiratory status. COVID-19 labs: SARS-CoV-2 PCR positive 12/06 lymphocytes 460 CRP 292 procalcitonin < 0.05 ferritin 763 D-dimer 530 COVID-specific therapies: dexamethasone 6 mg daily for up to 10 days remdesivir x 5 days; Pulm Med approval obtained; FDA EUA info given to pt; monitoring LFT's (AST today = 70) convalescent plasma- will defer, at least at this time, due to fluid overload; may or my not offer benefit; FDA EUA info given (3) Pneumonia due to COVID-19 virus: COVID-specific therapies as discussed above. Empiric therapy with doxycycline and ceftriaxone for possible concomitant bacterial pneumonia. (4) Atrial fibrillation with rapid ventricular response: Presented with atrial fibrillation with rapid ventricular response. History of hypertension; no other history of cardiovascular disease. K, Mg, and TSH normal. Troponin only minimally elevated, so acute [place] unlikely. Normal RV on echo makes large pulmonary embolism unlikely (but must still consider thromboembolic disease in light of COVID-19 diagnosis). Cardiology consulted. Started on diltiazem infusion in ED for rate control. Started metoprolol and weaned off diltiazem. [id number] score = 3. Started on IV heparin in ED; transitioned to SQ enoxaparin; discuss ferry terminal agent anticoagulation options with patient and Cardiology. Converted to NSR. Amiodarone therapy initiated to maintain NSR. (5) CHF (congestive heart failure): Echo demonstrated global hypokinesis left ventricular with LVEF of 20%. COVID-related myocarditis unlikely with normal troponin. Duration of AF uncertain; may have tachycardia-mediated cardiomyopathy. Worsening pulmonary infiltrates- suspect pulmonary edema + COVID pneumonia. Pro-BNP elevated. Acute left ventricular systolic heart failure. Continue lisinopril. Started on metoprolol tartrate with anticipated conversion to metoprolol succinate. Titrate diuretic therapy. (6) Hypertension: History of hypertension treated with lisinopril + HCTZ. Presented with AF and cardiomyopathy; started on metoprolol. Continue lisinopril. (7) Hyponatremia: Serum sodium day of admission 130. Hyponatremia probably secondary to HCTZ and/or SIADH. 1500 ml fluid restrictin. DC HCTZ. Na today = 127. Follow. (8) Benign prostatic hyperplasia: Chronic hesitancy and nocturia. Song cath inserted for urinary retention. Continue tamsulosin. (9) Encephalopathy: Very confused last evening. Probable toxic/metabolic encephalopathy (delirium) from acute illness. Improved. (10) DVT prophylaxis: IV heparin initially for atrial fibrillation. Now receiving therapeutic dosing of SQ enoxaparin. (11) Discharge planning issues: Anticipated discharge to home. Family Medicine follow-up with Dr. Cam. Follow-up with [facility]. Sister Crystal given update by phone this afternoon. Admission and Anticipated Discharge Date Admission Date: December 07, 2019 Subjective Recheck for COVID-19, AF, and other problems. Patient seen in their room around 1130. Multiple problems last evening and during the night. Worsening oxygenation eventually requiring BiPAP. Intolerance of BiPAP. Urinary retention requiring multiple straight caths. Confusion. Better this morning. Oxygenation improved with diuresis. Comfortable with high flow nasal oxygen. Less SOB. Nonproductive cough. No chest pain. Remains in NSR. Confusion improved. Review of Systems: Constitutional- no fever. Cardiac- as noted above. Pulmonary- as noted above. GI- no nausea, vomiting, diarrhea, melena, hematochezia. - Song cath. Otherwise, as noted above. Physical Exam Constitutional: WD/WN, vitals as above + ill appearing Eyes: + anicteric sclerae Respiratory: + tachypneic Auscultation: + rales Cardiovascular: Rate/Rhythm: regular rhythm Heart Sounds: + murmur (II/ sys murmur at base and LSB); no gallop (non appreciated, but exam limited) and no cardiac rub (none appreciated, but exam limited) Vessels: + JVD Extremities: normal capillary refill; no calf tenderness and no edema Gastrointestinal (Abdomen): normal bowel sounds, soft, nontender, no hepatosplenomegaly Musculoskeletal: Extremities: no cyanosis and no clubbing Psychiatric: Orientation: alert and oriented x 3 (oriented to person, place, day of week, year, president) Results & Data Results & Data ([facility]) Vital Signs (Past 12 Hours) Vital Signs Temp Pulse Pulse Resp BP BP Pulse Ox 12/09/19 19:02 36.9 C 74 25 H 106/76 100 12/09/19 18:59 77 20 98 12/09/19 15:25 75 23 108/82 99 12/09/19 15:11 91 H 18 96 12/09/19 12:22 36.7 C 77 32 H 111/81 96 12/09/19 11:20 75 23 94 12/09/19 08:28 85 26 H 95 12/09/19 08:04 36.9 C 79 26 H 139/102 H 96 Laboratory Results Laboratory Results - last 24 hr 12/09/19 12/09/19 12/09/19 05:47 05:47 05:47 WBC 14.56 H RBC 4.37 L Hgb 14.0 Hct 40.5 L MCV 92.7 MCH 32.0 MCHC 34.6 RDW Std Deviation 44.4 RDW Coeff of Shabnam 13.1 Plt Count 254 MPV 11.1 H APTT 49.8 H* PTT Ratio 1.8 Sodium 127 L Potassium 4.1 Chloride 94 L Carbon Dioxide 23 Anion Gap 10.0 BUN 45 H D Creatinine 1.12 Est Cr Clr Drug Dosing 53.3 Est GFR ( Amer) 75.7 Est GFR (Non-Af Amer) 65.3 BUN/Creatinine Ratio 39.9 H Glucose 144 H Calcium 8.9 Total Bilirubin 0.5 Direct Bilirubin 0.2 AST 70 H ALT 73 Alkaline Phosphatase 99 Total Protein 6.6 Albumin 3.0 L Globulin 3.6 Albumin/Globulin Ratio 0.8 L Urine Legionella Ag 12/09/19 10:50 WBC RBC Hgb Hct MCV MCH MCHC RDW Std Deviation RDW Coeff of Shabnam Plt Count MPV APTT PTT Ratio Sodium Potassium Chloride Carbon Dioxide Anion Gap BUN Creatinine Est Cr Clr Drug Dosing Est GFR ( Amer) Est GFR (Non-Af Amer) BUN/Creatinine Ratio Glucose Calcium Total Bilirubin Direct Bilirubin AST ALT Alkaline Phosphatase Total Protein Albumin Globulin Albumin/Globulin Ratio Urine Legionella Ag Pending Diagnostic Findings PORTABLE CHEST X-RAY Reviewed by the undersigned and formally interpreted by Radiology: FINDINGS: The heart remains enlarged. There are worsening bilateral pulmonary airspace opacities. There are no significant pleural effusions. No pneumothorax is visualized.[ IMPRESSION: Progressive bilateral pulmonary airspace opacities, consistent with a worsening multifocal pneumonia Electronically signed by: Santana Solano M.D. 12/09/2019 7:27 AM
[2019-12-09] MEDS: REMDESIVIR 100mg: Days 2-5 IV SCH (20:07)
[2019-12-09] MEDS: TAMSULOSIN HCL 0.4 MG CAP PO SCH (20:08)
[2019-12-09] MEDS: NSS 30mL Flush, Days 1-5 IV SCH (20:09)
[2019-12-09] MEDS ORDERED: FUROSEMIDE 20 MG in SYRINGE 0 ML IV ONE (20:15)
[2019-12-10 07:09] LABS: Hematocrit (blood only) 38.6 % (42-52); Hemoglobin 13.7 g/dL (14.0-18.0); Mean Corpuscular Hemoglobin 32.5 pg (25-34); Mean Corpuscular Hgb Conc 35.5 g/dL (32-36); Mean Corpuscular Volume 91.5 fL (80-100); Mean Platelet Volume 10.9 fL (7.4-10.4); Platelet Count 226 K/uL (130-400); RDW Standard Deviation 43.6 fL (36.4-46.3); Red Blood Count 4.22 M/uL (4.7-6.1); White Blood Count 14.37 K/uL (4.8-10.8)
[2019-12-10 07:42] LABS: Albumin Level 2.6 gm/dl (3.4-5.0); BUN Creatinine Ratio 47.4 (10-20); Bilirubin Direct 0.2 mg/dl (0-0.2); Calcium 8.7 mg/dl (8.5-10.1); Est GFR (Non-African American) 85.4
[2019-12-10 07:46] LABS: Albumin Globulin Ratio 0.8 (0.9-2); Bilirubin,Total 0.5 mg/dl (0.2-1); Ferritin 871.1 ng/ml (8-388); Globulin 3.2 gm/dl (2.5-4.0); Total Protein 5.8 gm/dl (6.4-8.2)
[2019-12-10] MEDS: AMIODARONE 200 MG TAB PO SCH ×3 (07:46→17:06)
[2019-12-10] MEDS: METOPROLOL TARTRATE 25 MG TAB PO SCH ×3 (07:46→20:30)
[2019-12-10] MEDS: lisinopril 10 MG TAB PO SCH (07:47)
[2019-12-10] MEDS: DOXYCYCLINE HYCLATE 100 MG CAP PO SCH ×2 (07:47→20:33)
[2019-12-10] MEDS: dexAMETHasone 6 MG in SYRINGE 0 ML IV SCH (07:47)
[2019-12-10] MEDS: cefTRIAXone SODIUM 1,000 MG in DEXTROSE 5% 50 ML IV SCH (07:47)
[2019-12-10] MEDS: ENOXAPARIN INJ 60 MG/0.6 ML SYR SC SCH ×2 (07:48→20:27)
--- NOTE | 2019-12-10 08:47 | Pulmonology Progress Note ---
Date of Service December 10, 2019 Assessment & Plan (1) Pneumonia due to COVID-19 virus: Impression: 74-year-old male presenting with cardiomyopathy, diffuse pulmonary infiltrates, hypoxemic respiratory failure, and COVID-19 infection. Recommendations: 1. Acute hypoxemic respiratory failure: Secondary to combinations of fluid overload as well as viral pneumonia. Doing better at this point time. Can continue to use BiPAP as needed and consider self pronating if the patient's oxygen requirement is going up however he appears to be responding appropriately. Maintain oxygen saturations above 90%. 2. COVID pneumonia: Patient currently receiving Remdesivir as well as dexamethasone. Complete 10-day dexamethasone course and 5-day course of Remdesivir. Given his clinical improvement, I do not think convalescent plasma is required at this point time but will defer to the hospitalist 3. Diffuse pulmonary infiltrates. Its difficult to ascertain how much of this is related to viral pneumonia and how much could be potentially related to fluid overload. Superimposed bacterial pneumonia is certainly a possibility however the patient's procalcitonin on presentation was normal. Recommend completing a 5-day course of empiric antibiotics to cover pneumonia. Continue diuresis under the direction of cardiology and the patient's primary care provider with close attention to renal function. Recommend follow-up chest x-ray in 4 weeks to document resolution 4. Acute systolic heart failure: Patient will require an ischemic evaluation at some point however his COVID infection complicates this. For anticoagulation and blood pressure medications to cardiology and primary service. 5. The patient appears to be responding to therapy appropriately this point time with significant stabilization of his pulmonary issues. Pulmonary will sign off at this point time. Feel free to contact us should the patient's condition worsen or if additional assistance is required (2) CHF (congestive heart failure): (3) Acute respiratory failure with hypoxia: Admission and Anticipated Discharge Date Admission Date: December 07, 2019 Subjective Patient seen through the window and discussed with the bedside nurse. EMR was reviewed. Discussed with hospitalist yesterday. The patient appears to be doing better at this point time. He appears to have less work of breathing and his respiratory status appears stable. He is off BiPAP and transition to nasal cannula. Review of Systems Review of Systems: Refer to hospitalist note Physical Exam Physical Exam: Patient seen and examined from the doorway. He appears to be in no distress and is breathing much more comfortably on nasal cannula today. Lymphatic: no cervical lymphadenopathy Results & Data Results & Data ([facility]) Vital Signs (Past 12 Hours) Vital Signs Temp Pulse Pulse Pulse Resp BP Pulse Ox 12/10/19 07:23 36.6 C 86 18 120/89 97 12/10/19 04:00 73 12/10/19 03:31 36.7 C 78 22 109/87 99 12/10/19 02:57 73 16 95 12/10/19 00:29 36.8 C 96 H 95 H 18 105/74 90 12/09/19 22:33 64 14 98 Laboratory Results 12/10/19 06:06 12/10/19 06:06 Diagnostic Findings No new imaging PG Care Time/CCT Total # of Minutes Spent Total Time Spent with Patient: Total time spent is greater than 50% in coordination of care (as documented) at patient's floor/unit and/or counseling patient: Coding Level of Care Code 49697 Subseq Hosp Care Lvl 2 Diagnoses Pneumonia due to COVID-19 virus U07.1; J12.89 CHF (congestive heart failure) I50.9 Acute respiratory failure with hypoxia J96.01
--- NOTE | 2019-12-10 10:16 | Electrocardiogram Report ---
Test Reason : Blood Pressure : / mmHG Vent. Rate : 070 BPM Atrial Rate : 070 BPM P-R Int : 180 ms QRS Dur : 160 ms QT Int : 504 ms P-R-T Axes : 012 010 138 degrees QTc Int : 544 ms Normal sinus rhythm Left bundle branch block Abnormal ECG When compared with ECG of 08-DEC-2019 09:01, Premature atrial complexes are no longer Present Confirmed by Vin Stern ([id number]) on 12/10/2019 10:15:40 AM Referred By: REFERRED SELF Confirmed By:Vin Stern
[2019-12-10] MEDS ORDERED: FUROSEMIDE 20 MG in SYRINGE 0 ML IV ONE (10:55)
[2019-12-10] MEDS ORDERED: FUROSEMIDE 40 MG/4 ML VIAL IV STA (11:10)
[2019-12-10] MEDS: POTASSIUM CHLORIDE 10 MEQ TABCR PO SCH ×3 (12:23→20:48)
[2019-12-10] MEDS: REMDESIVIR 100mg: Days 2-5 IV SCH (19:25)
[2019-12-10] MEDS: NSS 30mL Flush, Days 1-5 IV SCH (20:26)
[2019-12-10] MEDS: FUROSEMIDE 20 MG in SYRINGE 0 ML IV SCH (20:28)
[2019-12-10] MEDS: TAMSULOSIN HCL 0.4 MG CAP PO SCH (20:32)
--- NOTE | 2019-12-10 20:50 | Hospitalist Progress Note ---
Date of Service December 10, 2019 Assessment & Plan (1) Acute respiratory failure with hypoxia: Presented with nonproductive cough and dyspnea. Has COVID-19 as well as cardiomyopathy. Worsening oxygenation since admission with associated bilateral pulmonary infiltrates. O2 sats as low as 81% on RA 12/07. Suspect COVID pneumonia + CHF; separate problems are discussed below. Required BiPAP and high flow nasal O2 as high as 40 LPM. Oxygenation improved. Now oxygenating well on NC 2-3 LPM. (2) COVID-19: SARS-CoV-2 PCR performed as preop screen for possible cardiac cath and was positive. Onset dyspnea and mild cough about 7 days prior to admission. No fever at home, but low grade temp since admission. Worsening oxygenation and worsening pulmonary infiltrates consistent with COVID pneumonia. ID and Pulmonary Medicine consulted. Met criteria for COVID-specific therapies given worsening respiratory status. COVID-19 labs: SARS-CoV-2 PCR positive 12/06 lymphocytes 460 CRP 2.92 > 8.0 procalcitonin < 0.05 ferritin 763 > 871 D-dimer 530 COVID-specific therapies: dexamethasone 6 mg daily for up to 10 days DAY # 3 remdesivir x 5 days; Pulm Med approval obtained; FDA EUA info given to pt; monitoring LFT's (AST today = 51) DAY # 3 convalescent plasma- may or my not offer benefit; FDA EUA info given Patient prefers not to receive at this time. (3) Pneumonia due to COVID-19 virus: COVID-specific therapies as discussed above. Empiric therapy with doxycycline and ceftriaxone for possible concomitant bacterial pneumonia. (4) Atrial fibrillation with rapid ventricular response: Presented with atrial fibrillation with rapid ventricular response. History of hypertension; no other history of cardiovascular disease. K, Mg, and TSH normal. Troponin only minimally elevated, so acute [place] unlikely. Normal RV on echo makes large pulmonary embolism unlikely (but must still consider thromboembolic disease in light of COVID-19 diagnosis). Cardiology consulted. Started on diltiazem infusion in ED for rate control. Started metoprolol and weaned off diltiazem. Converted to NSR. Amiodarone therapy initiated to maintain NSR. [id number] score = 3. Started on IV heparin in ED; transitioned to SQ enoxaparin. Discuss prison anticoagulation options with patient and Cardiology. (5) CHF (congestive heart failure): Echo demonstrated global hypokinesis left ventricular with LVEF of 20%. COVID-related myocarditis unlikely with normal troponin. Duration of AF uncertain; may have tachycardia-mediated cardiomyopathy. Worsening pulmonary infiltrates- suspect pulmonary edema + COVID pneumonia. Pro-BNP elevated. Acute left ventricular systolic heart failure. Continue lisinopril. Started on metoprolol tartrate with anticipated conversion to metoprolol succinate. Titrate diuretic therapy. (6) Hypertension: History of hypertension treated with lisinopril + HCTZ. Presented with AF and cardiomyopathy; started on metoprolol. Continue lisinopril. (7) Hyponatremia: Serum sodium day of admission 130. Hyponatremia probably secondary to HCTZ and/or SIADH. 1500 ml fluid restriction. Stopped HCTZ. Na today = 131. Follow. (8) Benign prostatic hyperplasia: Chronic hesitancy and nocturia. Song cath inserted for urinary retention. Continue tamsulosin. (9) Encephalopathy: Very confused evening of 12/07. Probable toxic/metabolic encephalopathy (delirium) from acute illness. Improved. (10) DVT prophylaxis: IV heparin initially for atrial fibrillation. Now receiving therapeutic dosing of SQ enoxaparin. (11) Discharge planning issues: Anticipated discharge to home. Family Medicine follow-up with Dr. Cam. Follow-up with [facility]iology. Sister Crystal given update by phone this morning. Admission and Anticipated Discharge Date Admission Date: December 07, 2019 Subjective Recheck for COVID-19, AF, and other problems. Patient seen in their room around 1040. Feels better. Cough and SOB improved. No fever. No chest pain, palpitations. Review of Systems: Constitutional- no fever. Cardiac- as noted above. Pulmonary- as noted above. GI- no nausea, vomiting, diarrhea, melena, hematochezia. - Song cath. Otherwise, as noted above. Physical Exam Constitutional: WD/WN, vitals as above + ill appearing Eyes: + anicteric sclerae Respiratory: Auscultation: + rales Cardiovascular: Rate/Rhythm: regular rhythm Heart Sounds: + murmur (II/ sys murmur at base and LSB) Vessels: no JVD Extremities: no calf tenderness and no edema Gastrointestinal (Abdomen): normal bowel sounds, soft, nontender, no hepatosplenomegaly Musculoskeletal: Extremities: no cyanosis and no clubbing Psychiatric: Orientation: alert and oriented x 3 Genitourinary: + bladder abnormality (Song cath) Results & Data Results & Data ([facility]) Vital Signs (Past 12 Hours) Vital Signs Temp Pulse Pulse Resp BP Pulse Ox 12/10/19 20:31 93/27 L 12/10/19 18:50 36.5 C 57 L 19 90/69 L 97 12/10/19 15:12 36.5 C 62 16 98/75 L 12/10/19 12:21 67 108/72 97 12/10/19 10:58 36.6 C 59 L 18 90/66 L 96 Laboratory Results Laboratory Results - last 24 hr 12/10/19 12/10/19 12/10/19 06:06 06:06 06:06 WBC 14.37 H RBC 4.22 L Hgb 13.7 L Hct 38.6 L MCV 91.5 MCH 32.5 MCHC 35.5 RDW Std Deviation 43.6 RDW Coeff of Shabnam 13.0 Plt Count 226 MPV 10.9 H Sodium 131 L Potassium 4.0 Chloride 96 L Carbon Dioxide 28 Anion Gap 7.0 BUN 42 H Creatinine 0.89 Est Cr Clr Drug Dosing 65.0 Est GFR ( Amer) 99.0 Est GFR (Non-Af Amer) 85.4 BUN/Creatinine Ratio 47.4 H Glucose 104 H Calcium 8.7 Ferritin 871.1 H Total Bilirubin 0.5 Direct Bilirubin 0.2 AST 51 H ALT 60 Alkaline Phosphatase 87 C-Reactive Protein 8.00 H Total Protein 5.8 L Albumin 2.6 L Globulin 3.2 Albumin/Globulin Ratio 0.8 L Blood Type O Positive
[2019-12-11 06:36] LABS: Hematocrit (blood only) 37.5 % (42-52); Hemoglobin 12.7 g/dL (14.0-18.0); Mean Corpuscular Hemoglobin 31.4 pg (25-34); Mean Corpuscular Hgb Conc 33.9 g/dL (32-36); Mean Corpuscular Volume 92.8 fL (80-100); Mean Platelet Volume 10.9 fL (7.4-10.4); Platelet Count 252 K/uL (130-400); RDW Coefficient of Variation 13.1 % (11.5-14.5); RDW Standard Deviation 44.8 fL (36.4-46.3); Red Blood Count 4.04 M/uL (4.7-6.1); White Blood Count 10.45 K/uL (4.8-10.8)
[2019-12-11 07:21] LABS: Albumin Level 2.5 gm/dl (3.4-5.0); BUN Creatinine Ratio 43.3 (10-20); Bilirubin Direct 0.2 mg/dl (0-0.2); Calcium 8.2 mg/dl (8.5-10.1); Creatinine Clr Calc Pharmacy 64.2 ml/min; Est GFR (African American) 98.5
[2019-12-11 07:24] LABS: Albumin Globulin Ratio 0.8 (0.9-2); Bilirubin,Total 0.5 mg/dl (0.2-1); Globulin 3.3 gm/dl (2.5-4.0); Total Protein 5.8 gm/dl (6.4-8.2)
[2019-12-11] MEDS: lisinopril 10 MG TAB PO SCH (08:49)
[2019-12-11] MEDS: AMIODARONE 200 MG TAB PO SCH ×3 (08:49→18:01)
[2019-12-11] MEDS: METOPROLOL TARTRATE 25 MG TAB PO SCH ×3 (08:49→20:34)
[2019-12-11] MEDS: dexAMETHasone 6 MG in SYRINGE 0 ML IV SCH (08:49)
[2019-12-11] MEDS: cefTRIAXone SODIUM 1,000 MG in DEXTROSE 5% 50 ML IV SCH (08:50)
[2019-12-11] MEDS: DOXYCYCLINE HYCLATE 100 MG CAP PO SCH ×2 (08:50→20:33)
[2019-12-11] MEDS: ENOXAPARIN INJ 60 MG/0.6 ML SYR SC SCH ×2 (08:50→22:56)
[2019-12-11] MEDS: FUROSEMIDE 20 MG in SYRINGE 0 ML IV SCH ×2 (08:51→20:33)
[2019-12-11] MEDS: POTASSIUM CHLORIDE 10 MEQ TABCR PO SCH ×4 (08:56→21:45)
[2019-12-11 11:16] LABS: iSTAT Arterial Blood Gas pCO2 27 mmHg (35-46); iSTAT Arterial Blood Gas pH 7.41 (7.35-7.45); iSTAT Arterial Blood Gas pO2 59 mmHg (80-95); iSTAT Hematocrit 40 % (42-52); iSTAT Hemoglobin 13.6 g/dl (14.0-18.0); iSTAT Potassium 3.7 mmol/L (3.3-5.0); iSTAT Sodium 125 mmol/L (135-144)
[2019-12-11 11:17] LABS: iSTAT Arterial Blood Gas HCO3 17 meg/L (19-24); iSTAT Carbon Dioxide 18 mmol/L (24-31)
[2019-12-11] MEDS: DOCUSATE SODIUM 100 MG CAP PO SCH ×2 (12:00→20:33)
[2019-12-11] MEDS: bisacodyL 5 MG TABEC PO PRN (14:54)
--- NOTE | 2019-12-11 19:14 | Hospitalist Progress Note ---
Date of Service December 11, 2019 Assessment & Plan (1) Acute respiratory failure with hypoxia: Presented with nonproductive cough and dyspnea. Has COVID-19 as well as cardiomyopathy. Worsening oxygenation in first 24 hrs of admission with associated bilateral pulmonary infiltrates. O2 sats as low as 81% on RA /. Suspect COVID pneumonia + CHF; separate problems are discussed below. Required BiPAP and high flow nasal O2 as high as 40 LPM. Oxygenation improved. Now oxygenating well on NC 2 LPM. (2) COVID-19: SARS-CoV-2 PCR performed as preop screen for possible cardiac cath and was positive. Onset dyspnea and mild cough about 7 days prior to admission. No fever at home, but low grade temp since admission. Worsening oxygenation and worsening pulmonary infiltrates consistent with COVID pneumonia. ID and Pulmonary Medicine consulted. Met criteria for COVID-specific therapies given worsening respiratory status. COVID-19 labs: SARS-CoV-2 PCR positive 12/06 lymphocytes 460 CRP 2.92 > 8.0 procalcitonin < 0.05 ferritin 763 > 871 D-dimer 530 COVID-specific therapies: dexamethasone 6 mg daily for up to 10 days DAY # 4 remdesivir x 5 days; Pulm Med approval obtained; FDA EUA info given to pt; monitoring LFT's (OK today) DAY # 4 convalescent plasma- may or my not offer benefit; FDA EUA info given Patient prefers not to receive at this time. (3) Pneumonia due to COVID-19 virus: COVID-specific therapies as discussed above. Empiric therapy with doxycycline and ceftriaxone for possible concomitant bacterial pneumonia. (4) Atrial fibrillation with rapid ventricular response: Presented with atrial fibrillation with rapid ventricular response. History of hypertension; no other history of cardiovascular disease. K, Mg, and TSH normal. Troponin only minimally elevated, so acute [place] unlikely. Normal RV on echo makes large pulmonary embolism unlikely (but must still consider thromboembolic disease in light of COVID-19 diagnosis). Cardiology consulted. Started on diltiazem infusion in ED for rate control. Started metoprolol and weaned off diltiazem. Converted to NSR. Amiodarone therapy initiated to maintain NSR. Bradycardia as low as 40's. Decrease metoprolol tartrate to 25 mg BID. Continue amiodarone 200 mg TID. [id number] score = 3. Started on IV heparin in ED; transitioned to SQ enoxaparin. 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 (5) CHF (congestive heart failure): Echo demonstrated global hypokinesis left ventricular with LVEF of 20%. COVID-related myocarditis unlikely with normal troponin. Duration of AF uncertain; may have tachycardia-mediated cardiomyopathy. Worsening pulmonary infiltrates- suspect pulmonary edema + COVID pneumonia. Pro-BNP elevated. Acute left ventricular systolic heart failure. Continue lisinopril. Started on metoprolol tartrate with anticipated conversion to metoprolol succinate. Titrate diuretic therapy. (6) Hypertension: History of hypertension treated with lisinopril + HCTZ. Presented with AF and cardiomyopathy; started on metoprolol. Continue lisinopril. (7) Hyponatremia: Serum sodium day of admission 130. Hyponatremia probably secondary to HCTZ and/or SIADH. 1500 ml fluid restriction. Stopped HCTZ. Na today = 133. Follow. (8) Benign prostatic hyperplasia: Chronic hesitancy and nocturia. Song cath inserted for urinary retention. Continue tamsulosin. Voiding trial before discharge. (9) Encephalopathy: Very confused evening of 12/07. Probable toxic/metabolic encephalopathy (delirium) from acute illness. Improved. (10) DVT prophylaxis: IV heparin initially for atrial fibrillation. Now receiving therapeutic dosing of SQ enoxaparin. (11) Discharge planning issues: Anticipated discharge to home. Family Medicine follow-up with Dr. Cam. Follow-up with [facility]. Sister Crystal given update by phone this evening. Admission and Anticipated Discharge Date Admission Date: December 07, 2019 Subjective Recheck for COVID-19, AF, and other problems. Patient seen in their room around 1110. No new problems. Cough and SOB improved. No fever. No chest pain, palpitations. Cardiac rhythm reviewed with monitor techs. SB / SR 40's - 60's. Review of Systems: Constitutional- no fever. Cardiac- as noted above. Pulmonary- as noted above. GI- no nausea, vomiting, diarrhea, melena, hematochezia. - Song cath. Otherwise, as noted above. Physical Exam Constitutional: no acute distress Eyes: + anicteric sclerae Respiratory: Auscultation: + rales Cardiovascular: Rate/Rhythm: regular rhythm Heart Sounds: + murmur (II/ sys murmur at base and LSB) Vessels: no JVD Extremities: no calf tenderness and no edema Gastrointestinal (Abdomen): normal bowel sounds, soft, nontender, no hepatosplenomegaly Musculoskeletal: Extremities: no cyanosis Psychiatric: Orientation: alert and oriented x 3 Genitourinary: + bladder abnormality (Song cath) Results & Data Results & Data ([facility]) Vital Signs (Past 12 Hours) Vital Signs Temp Pulse Pulse Resp BP Pulse Ox 12/11/19 16:36 36.3 C L 56 L 18 92/65 L 98 12/11/19 16:00 53 L 12/11/19 11:57 36.5 C 61 18 99/70 L 98 12/11/19 08:18 36.4 C L 77 19 118/81 96 12/11/19 08:00 63 Laboratory Results Laboratory Results - last 24 hr 12/09/19 12/11/19 12/11/19 05:09 05:46 05:46 WBC 10.45 RBC 4.04 L Hgb 12.7 L POC Hgb 13.6 L Hct 37.5 L POC Hct 40 L MCV 92.8 MCH 31.4 MCHC 33.9 RDW Std Deviation 44.8 RDW Coeff of Shabnam 13.1 Plt Count 252 MPV 10.9 H POC pH 7.41 POC pCO2 27 L POC pO2 59 L POC HCO3 17 L POC Total CO2 18 L POC Base Excess -8.0 POC ABG O2 Sat 91.0 POC Sodium 125 L Sodium 133 L POC Potassium 3.7 Potassium 4.0 Chloride 98 Carbon Dioxide 27 Anion Gap 8.0 BUN 39 H Creatinine 0.90 Est Cr Clr Drug Dosing 64.2 Est GFR ( Amer) 98.5 Est GFR (Non-Af Amer) 85.0 BUN/Creatinine Ratio 43.3 H Glucose 106 H Calcium 8.2 L Total Bilirubin 0.5 Direct Bilirubin 0.2 AST 35 ALT 53 Alkaline Phosphatase 86 Total Protein 5.8 L Albumin 2.5 L Globulin 3.3 Albumin/Globulin Ratio 0.8 L
[2019-12-11] MEDS: REMDESIVIR 100mg: Days 2-5 IV SCH (20:32)
[2019-12-11] MEDS: TAMSULOSIN HCL 0.4 MG CAP PO SCH (20:33)
[2019-12-11] MEDS: NSS 30mL Flush, Days 1-5 IV SCH (20:38)
[2019-12-12 07:21] LABS: Hematocrit (blood only) 37.9 % (42-52); Hemoglobin 13.1 g/dL (14.0-18.0); Mean Corpuscular Hemoglobin 32.1 pg (25-34); Mean Corpuscular Hgb Conc 34.6 g/dL (32-36); Mean Corpuscular Volume 92.9 fL (80-100); Mean Platelet Volume 10.9 fL (7.4-10.4); Platelet Count 267 K/uL (130-400); RDW Coefficient of Variation 13.1 % (11.5-14.5); RDW Standard Deviation 44.8 fL (36.4-46.3); Red Blood Count 4.08 M/uL (4.7-6.1)
[2019-12-12 07:54] LABS: Albumin Level 2.5 gm/dl (3.4-5.0); BUN Creatinine Ratio 48.4 (10-20); Bilirubin Direct 0.1 mg/dl (0-0.2); Calcium 8.3 mg/dl (8.5-10.1); Creatinine Clr Calc Pharmacy 68.6 ml/min; Est GFR (African American) 101.9; Est GFR (Non-African American) 87.9
[2019-12-12 07:56] LABS: Albumin Globulin Ratio 0.8 (0.9-2); Bilirubin,Total 0.6 mg/dl (0.2-1); C Reactive Protein 3.1 mg/dl (0-0.29); Globulin 3.1 gm/dl (2.5-4.0); Total Protein 5.6 gm/dl (6.4-8.2)
[2019-12-12] MEDS ORDERED: METOPROLOL TARTRATE 25 MG TAB PO SCH (09:00)
[2019-12-12] MEDS: cefTRIAXone SODIUM 1,000 MG in DEXTROSE 5% 50 ML IV SCH (09:00)
[2019-12-12] MEDS: dexAMETHasone 6 MG in SYRINGE 0 ML IV SCH (09:02)
[2019-12-12] MEDS: DOCUSATE SODIUM 100 MG CAP PO SCH ×2 (09:03→20:38)
[2019-12-12] MEDS: DOXYCYCLINE HYCLATE 100 MG CAP PO SCH ×2 (09:03→20:37)
[2019-12-12] MEDS: ENOXAPARIN INJ 60 MG/0.6 ML SYR SC SCH ×2 (09:04→20:37)
[2019-12-12] MEDS: POTASSIUM CHLORIDE 10 MEQ TABCR PO SCH ×4 (10:39→22:05)
[2019-12-12] MEDS: FUROSEMIDE 20 MG in SYRINGE 0 ML IV SCH ×2 (10:40→22:05)
[2019-12-12] MEDS: lisinopril 10 MG TAB PO SCH (10:40)
[2019-12-12] MEDS: AMIODARONE 200 MG TAB PO SCH ×2 (10:41→17:01)
[2019-12-12] MEDS: METOPROLOL SUCC 25MG EXT REL TAB PO SCH (11:28)
--- NOTE | 2019-12-12 13:03 | Cardiology Progress Note ---
Date of Service December 12, 2019 Assessment & Plan (1) COVID-19: (2) Paroxysmal atrial fibrillation: (3) Acute systolic CHF (congestive heart failure), NYHA class 4: (4) Hypotension: (5) Acute respiratory failure with hypoxia: (6) LBBB (left bundle branch block): Reduce amiodarone to 200 mg twice daily. Discontinue metoprolol tartrate 25 mg twice daily in favor of Toprol-XL 25 mg once daily. Continue to follow/monitor heart rate and blood pressure closely. Maintain negative fluid balance with close attention to GFR, electrolytes, respiratory status, and daily weight. Consider reducing dose of lisinopril pending clinical response to reduction of beta-lizz and amiodarone. Admission and Anticipated Discharge Date Admission Date: December 07, 2019 Subjective Case discussed with hospitalist physician. Concerns regarding borderline hypotension and bradycardia. Respiratory status stable. Adequate oxygen saturation on 3 L nasal cannula. No chest discomfort reported. Telemetry reviewed demonstrating sinus rhythm without recurrent atrial fibrillation. Results & Data ([facility]) Vital Signs (Past 12 Hours) Vital Signs Temp Pulse Pulse Resp BP Pulse Ox 12/12/19 11:10 36.4 C L 55 L 27 H 99/65 L 98 12/12/19 08:16 36.4 C L 56 L 20 97/63 L 98 12/12/19 08:00 53 L 12/12/19 03:24 36.8 C 57 L 19 104/78 98 (1) Hypotension Hypotension type: hypotension due to drug Qualified Code(s): I95.2 - Hypotension due to drugs
[2019-12-12] MEDS: bisacodyL 5 MG TABEC PO PRN (14:29)
[2019-12-12] MEDS: REMDESIVIR 100mg: Days 2-5 IV SCH (20:34)
[2019-12-12] MEDS: NSS 30mL Flush, Days 1-5 IV SCH (20:35)
[2019-12-12] MEDS: TAMSULOSIN HCL 0.4 MG CAP PO SCH (20:36)
--- NOTE | 2019-12-12 20:45 | Hospitalist Progress Note ---
Date of Service December 12, 2019 Assessment & Plan (1) Acute respiratory failure with hypoxia: Presented with nonproductive cough and dyspnea. Has COVID-19 as well as cardiomyopathy. Worsening oxygenation in first 24 hrs of admission with associated bilateral pulmonary infiltrates. O2 sats as low as 81% on RA /. Suspect COVID pneumonia + CHF; separate problems are discussed below. Required BiPAP and high flow nasal O2 as high as 40 LPM. Oxygenation improved. Now oxygenating well on NC.. (2) COVID-19: SARS-CoV-2 PCR performed as preop screen for possible cardiac cath and was positive. Onset dyspnea and mild cough about 7 days prior to admission. No fever at home, but low grade temp since admission. Worsening oxygenation and worsening pulmonary infiltrates consistent with COVID pneumonia. ID and Pulmonary Medicine consulted. Met criteria for COVID-specific therapies given worsening respiratory status. COVID-19 labs: SARS-CoV-2 PCR positive 12/06 lymphocytes 460 CRP 2.92 > 8.0 > 3.1 procalcitonin < 0.05 ferritin 763 > 871 D-dimer 530 COVID-specific therapies: dexamethasone 6 mg daily for up to 10 days DAY # 5 remdesivir x 5 days; Pulm Med approval obtained; FDA EUA info given to pt; monitoring LFT's (OK today) DAY # 5 convalescent plasma May or my not offer benefit. FDA EUA info given Patient opted not to receive it. (3) Pneumonia due to COVID-19 virus: COVID-specific therapies as discussed above. Empiric therapy with doxycycline and ceftriaxone for possible concomitant bacterial pneumonia. (4) Atrial fibrillation with rapid ventricular response: Presented with atrial fibrillation with rapid ventricular response. History of hypertension; no other history of cardiovascular disease. K, Mg, and TSH normal. Troponin only minimally elevated, so acute [place] unlikely. Normal RV on echo makes large pulmonary embolism unlikely (but must still consider thromboembolic disease in light of COVID-19 diagnosis). Cardiology consulted. Started on diltiazem infusion in ED for rate control. Started metoprolol and weaned off diltiazem. Converted to NSR. Amiodarone therapy initiated to maintain NSR. Bradycardic. BP's relatively low. Amiodarone decreased to 200 mg BID. Metoprolol converted to metoprolol succinate 25 mg daily. [id number] score = 3. Started on IV heparin in ED; transitioned to SQ enoxaparin. Discuss adjunct faculty for medical terminology anticoagulation options with patient and Cardiology. [facility]- [facility] options on their formulary. (5) CHF (congestive heart failure): Echo demonstrated global hypokinesis left ventricular with LVEF of 20%. COVID-related myocarditis unlikely with normal troponin. Duration of AF uncertain; may have tachycardia-mediated cardiomyopathy. Worsening pulmonary infiltrates- suspect pulmonary edema + COVID pneumonia. Pro-BNP elevated. Acute left ventricular systolic heart failure. Continue lisinopril. Started on metoprolol tartrate; converted to metoprolol succinate. Titrate diuretic therapy. Check f/u chest x-ray tomorrow. Further evaluation and management per Cardiology. (6) Hypertension: History of hypertension treated with lisinopril + HCTZ. Presented with AF and cardiomyopathy; started on metoprolol. Continue lisinopril. (7) Hyponatremia: Serum sodium day of admission 130. Hyponatremia probably secondary to HCTZ and/or SIADH. 1500 ml fluid restriction. Stopped HCTZ. Na today = 135. Follow. (8) Benign prostatic hyperplasia: Chronic hesitancy and nocturia. Song cath inserted for urinary retention. Continue tamsulosin. Voiding trial before discharge- try tomorrow morning. (9) Encephalopathy: Very confused evening of 12/07. Probable toxic/metabolic encephalopathy (delirium) from acute illness. Improved. (10) DVT prophylaxis: IV heparin initially for atrial fibrillation. Now receiving therapeutic dosing of SQ enoxaparin. (11) Discharge planning issues: Anticipated discharge to home. Family Medicine follow-up with Dr. Cam. Follow[facility]up with [facility]. Sister Crystal given update by phone this evening. Admission and Anticipated Discharge Date Admission Date: December 07, 2019 Subjective Recheck for COVID-19, AF, and other problems. Patient seen in their room around 1500. Feels better. Cough and SOB improved. No chest pain, palpitations. Cardiac rhythm reviewed with monitor techs. SB / SR 50's - 60's, PAC's. Review of Systems: Constitutional- no fever. Cardiac- as noted above. Pulmonary- as noted above. GI- no nausea, vomiting, diarrhea, melena, hematochezia. - Song cath. Otherwise, as noted above. Physical Exam Constitutional: WD/WN, vitals as above no acute distress Eyes: + anicteric sclerae Respiratory: Auscultation: + rales (few basilar) Cardiovascular: Rate/Rhythm: regular rhythm Heart Sounds: + murmur (II/ sys murmur at base and LSB) Vessels: no JVD Extremities: no calf tenderness and no edema Gastrointestinal (Abdomen): normal bowel sounds, soft, nontender, no hepatosplenomegaly Musculoskeletal: Extremities: no cyanosis Psychiatric: Orientation: alert and oriented x 3 Genitourinary: + bladder abnormality (Song cath) Results & Data Results & Data ([facility]) Vital Signs (Past 12 Hours) Vital Signs Temp Pulse Pulse Resp BP Pulse Ox 12/12/19 19:38 36.6 C 63 18 108/76 96 12/12/19 16:00 55 L 12/12/19 15:38 36.4 C L 55 L 18 103/71 98 12/12/19 11:10 36.4 C L 55 L 27 H 99/65 L 98 Laboratory Results Laboratory Results - last 24 hr 12/12/19 12/12/19 06:15 06:15 WBC 10.20 RBC 4.08 L Hgb 13.1 L Hct 37.9 L MCV 92.9 MCH 32.1 MCHC 34.6 RDW Std Deviation 44.8 RDW Coeff of Shabnam 13.1 Plt Count 267 MPV 10.9 H Sodium 135 L Potassium 4.0 Chloride 102 Carbon Dioxide 28 Anion Gap 5.0 BUN 40 H Creatinine 0.83 Est Cr Clr Drug Dosing 68.6 Est GFR ( Amer) 101.9 Est GFR (Non-Af Amer) 87.9 BUN/Creatinine Ratio 48.4 H Glucose 103 H Calcium 8.3 L Total Bilirubin 0.6 Direct Bilirubin 0.1 AST 25 ALT 50 Alkaline Phosphatase 83 C-Reactive Protein 3.10 H Total Protein 5.6 L Albumin 2.5 L Globulin 3.1 Albumin/Globulin Ratio 0.8 L
[2019-12-13 07:24] LABS: Hematocrit (blood only) 41.6 % (42-52); Hemoglobin 13.9 g/dL (14.0-18.0); Mean Corpuscular Hemoglobin 31.4 pg (25-34); Mean Corpuscular Hgb Conc 33.4 g/dL (32-36); Mean Corpuscular Volume 94.1 fL (80-100); Mean Platelet Volume 10.6 fL (7.4-10.4); Platelet Count 331 K/uL (130-400); RDW Coefficient of Variation 13.1 % (11.5-14.5); RDW Standard Deviation 45.3 fL (36.4-46.3); Red Blood Count 4.42 M/uL (4.7-6.1); White Blood Count 10.67 K/uL (4.8-10.8)
[2019-12-13] MEDS: DOXYCYCLINE HYCLATE 100 MG CAP PO SCH ×2 (07:35→22:06)
[2019-12-13] MEDS: DOCUSATE SODIUM 100 MG CAP PO SCH ×2 (07:35→22:07)
[2019-12-13] MEDS: lisinopril 10 MG TAB PO SCH (07:36)
[2019-12-13] MEDS: METOPROLOL SUCC 25MG EXT REL TAB PO SCH (07:36)
[2019-12-13] MEDS: AMIODARONE 200 MG TAB PO SCH ×2 (07:37→16:59)
[2019-12-13] MEDS: ENOXAPARIN INJ 60 MG/0.6 ML SYR SC SCH ×2 (07:37→22:07)
[2019-12-13] MEDS: dexAMETHasone 6 MG in SYRINGE 0 ML IV SCH (07:49)
[2019-12-13] MEDS: cefTRIAXone SODIUM 1,000 MG in DEXTROSE 5% 50 ML IV SCH (07:49)
[2019-12-13] MEDS: POTASSIUM CHLORIDE 10 MEQ TABCR PO SCH ×3 (07:50→17:07)
[2019-12-13 08:00] LABS: Albumin Level 2.6 gm/dl (3.4-5.0); BUN Creatinine Ratio 40.8 (10-20); Calcium 9.1 mg/dl (8.5-10.1); Creatinine Clr Calc Pharmacy 61.2 ml/min; Est GFR (African American) 94.7; Est GFR (Non-African American) 81.7; Potassium 4.2 mmol/L (3.5-5.1)
[2019-12-13 08:03] LABS: Albumin Globulin Ratio 0.8 (0.9-2); Bilirubin,Total 0.5 mg/dl (0.2-1); Globulin 3.2 gm/dl (2.5-4.0); Total Protein 5.8 gm/dl (6.4-8.2)
[2019-12-13] MEDS: FUROSEMIDE 20 MG in SYRINGE 0 ML IV SCH (08:31)
[2019-12-13 10:06] LABS: Bilirubin Direct 0.2 mg/dl (0-0.2)
--- NOTE | 2019-12-13 10:34 | XRay Report ---
XR chest 1V portable CLINICAL HISTORY: CHF + COVID-19 COMPARISON STUDY: 12/09/2019 FINDINGS: The heart is enlarged. There is been near complete interval resolution of the bilateral pul monary airspace opacities. No large effusions are visualized.[ IMPRESSION: Near complete interval resolution of the previously identified bilateral pulmonary airspa ce opacities. ACT 112: Negative or not required by law. Electronically signed by: Santana Solano M.D. 12/13/2019 10:32 AM
--- NOTE | 2019-12-13 16:59 | Hospitalist Progress Note ---
Date of Service December 13, 2019 Assessment & Plan (1) Acute respiratory failure with hypoxia: Presented with nonproductive cough and dyspnea. Has COVID-19 as well as cardiomyopathy. Worsening oxygenation in first 24 hrs of admission with associated bilateral pulmonary infiltrates. O2 sats as low as 81% on RA 12/07. Suspect COVID pneumonia + CHF; separate problems are discussed below. Required BiPAP and high flow nasal O2 as high as 40 LPM. off supplemental oxygen as of yesterday and ambulating without dyspnea today. Hypoxia has resolved and he is fully compensated and euvolemic on exam. (2) COVID-19: SARS-CoV-2 PCR performed as preop screen for possible cardiac cath and was positive 12/06 Onset dyspnea and mild cough about 7 days prior to admission. No fever at home, but low grade temp since admission. Worsening oxygenation and worsening pulmonary infiltrates consistent with COVID pneumonia. ID and Pulmonary Medicine consulted. Met criteria for COVID-specific therapies given worsening respiratory status. COVID-specific therapies: dexamethasone 6 mg -->day 08/01 remdesivir x 5 days convalescent plasma-->pt declined. (3) Pneumonia due to COVID-19 virus: COVID-specific therapies as discussed above. Empiric therapy with doxycycline and ceftriaxone for possible concomitant bacterial pneumonia. He is day 5/ so will continue current abx administration as he is almost through with the course. (4) Atrial fibrillation with rapid ventricular response: Presented with atrial fibrillation with rapid ventricular response. History of hypertension; no other history of cardiovascular disease. K, Mg, and TSH normal. Troponin only minimally elevated, so acute [place] unlikely. Normal RV on echo makes large pulmonary embolism unlikely (but must still consider thromboembolic disease in light of COVID-19 diagnosis). Cardiology consulted. Started on diltiazem infusion in ED for rate control. Started metoprolol and weaned off diltiazem. Converted to NSR. Amiodarone therapy initiated to maintain NSR. Bradycardic. BP's relatively low. Amiodarone decreased to 200 mg BID. Metoprolol converted to metoprolol succinate 25 mg daily. [id number] score = 3. Started on IV heparin in ED; transitioned to SQ enoxaparin. [facility] (5) CHF (congestive heart failure): Echo demonstrated global hypokinesis left ventricular with LVEF of 20%. COVID-related myocarditis unlikely with normal troponin. Duration of AF uncertain; may have tachycardia-mediated cardiomyopathy. Worsening pulmonary infiltrates- suspect pulmonary edema + COVID pneumonia. Pro-BNP elevated. Acute left ventricular systolic heart failure. Continue lisinopril. Started on metoprolol tartrate; converted to metoprolol succinate. Titrate diuretic therapy. Appears compensated on exam today. Hold diuretics and potassium supplements this afternoon and overnight. Cont Toprol. Hold ACEI with relative hypotension. Will likely discharge him on a small dose of lasix with potassium. Will review with cardiology prior to discharge. (6) Hypertension: History of hypertension treated with lisinopril + HCTZ. Presented with AF and cardiomyopathy; started on metoprolol. Lisinopril held in setting of relative hypotension. (7) Benign prostatic hyperplasia: Acute urinary retention with Song placement. TOV today. Cont flomax. (8) Encephalopathy: resolved. (9) DVT prophylaxis: Lovenox Full Code Dispo-likely to home in am. PT/OT to evaluate for safety. Lives with brother, uncertain COVID status. Briefly discussed self quarantine that would be necessary. Marquita Beck DO [facility] Hospitalist Admission and Anticipated Discharge Date Admission Date: December 07, 2019 Subjective feel well today ambulating round room and denies dyspnea afebrile off oxygen since yesterday BM today Review of Systems Review of Systems: All systems reviewed & are unremarkable except as noted in Subjective Physical Exam Physical Exam: CONSTITUTIONAL: WNWD, vitals as above, generally well- appearing EYES: normal conjunctivae, no scleral icterus ENT: external ear and nose normal,MMM RESPIRATORY: clear to auscultation bilaterally, no crackles, rales or wheezes, normal respiratory effort CARDIOVASCULAR: regular rate and rhythm, S1 and 2 heard without murmurs, gal lops or rubs, no JVD, no peripheral edema GASTROINTESTINAL: soft, nontender, nondistended, no guarding. MUSCULOSKELETAL: strength 5/5 throughout,ambulatory SKIN: warm and dry NEUROLOGIC: CN 2-12 grossly intact, no gross focal deficits. PSYCHIATRIC: alert cooperative and oriented to person, place and time. Euthymic mood, makes good eye contact, language grossly intact, recent and remote memory grossly intact. Results & Data Results & Data ([facility]) Vital Signs (Past 12 Hours) Vital Signs Temp Pulse Pulse Resp BP Pulse Ox 12/13/19 15:00 52 L 12/13/19 12:29 36.4 C L 55 L 21 96/67 L 92 12/13/19 07:18 56 L 12/13/19 05:01 36.4 C L 54 L 16 107/70 96 Laboratory Results Short CBC 12/13/19 Range/Units 05:59 WBC 10.67 (4.8-10.8) K/uL Hgb 13.9 L (14.0-18.0) g/dL Hct 41.6 L (42-52) % Plt Count 331 (130-400) K/uL BMP 12/13/19 05:59 Sodium 136 Potassium 4.2 Chloride 102 Carbon Dioxide 30 BUN 38 H Creatinine 0.93 Glucose 91 Calcium 9.1 Liver Function 12/13/19 Range/Units 05:59 Total Bilirubin 0.5 (0.2-1) mg/dl Direct Bilirubin 0.2 D (0-0.2) mg/dl AST 24 (15-37) U/L ALT 61 (12-78) U/L Alkaline Phosphatase 86 (45-117) U/L Albumin 2.6 L (3.4-5.0) gm/dl Medications Administered Current Inpatient Medications Acetaminophen (Acetaminophen 325 Mg Tab) 650 mg PO Q4H PRN PRN Reason: Pain or Fever Stop: 01/06/20 16:20 Amiodarone HCl (Amiodarone 200 Mg Tab) 200 mg PO BIDM [facility] Stop: 01/11/20 16:59 Last Admin: 12/13/19 07:37 Dose: 200 mg Documented by: Bisacodyl (Bisacodyl 5 Mg Tabec) 5 mg PO DAILY PRN PRN Reason: Constipation Stop: 01/10/20 11:55 Last Admin: 12/12/19 14:29 Dose: 5 mg Documented by: Docusate Sodium (Docusate Sodium 100 Mg Cap) 100 mg PO BID [facility] Stop: 01/10/20 11:59 Last Admin: 12/13/19 07:35 Dose: 100 mg Documented by: Doxycycline Hyclate (Doxycycline Hyclate 100 Mg Cap) 100 mg PO BID [facility]; Protocol Stop: 12/16/19 08:59 Last Admin: 12/13/19 07:35 Dose: 100 mg Documented by: Enoxaparin Sodium (Enoxaparin Inj 60 Mg/0.6 Ml Syr) 60 mg SC Q12 [facility] Stop: 01/08/20 08:59 Last Admin: 12/13/19 07:37 Dose: 60 mg Documented by: Dexamethasone 6 mg/ Syringe 1.5 mls @ 1 mls/min IV DAILY [facility] Stop: 01/07/20 14:44 Last Admin: 12/13/19 07:49 Dose: 1 mls/min Documented by: Lorazepam (Ativan) 0.25 mg in 0.5 mls @ 0.5 mls/min IV Q4H PRN PRN Reason: Anxiety Stop: 01/07/20 19:48 Last Admin: 12/09/19 01:05 Dose: 0.5 mls/min Documented by: Ceftriaxone Sodium 1,000 mg/ (Dextrose) 50 mls @ 100 mls/hr IV Q24H [facility]; Protocol Stop: 12/16/19 08:59 Last Infusion: 12/13/19 09:35 Dose: Infused Documented by: Furosemide 20 mg/ Syringe 2 mls @ 4 mls/min IV Q12 [facility] Stop: 01/09/20 20:59 Last Admin: 12/13/19 08:31 Dose: 4 mls/min Documented by: Lisinopril (Lisinopril 10 Mg Tab) 10 mg PO QAM [facility] Stop: 01/07/20 08:59 Last Admin: 12/13/19 07:36 Dose: 10 mg Documented by: Metoprolol Succinate (Metoprolol Succ 25mg Ext Rel Tab) 25 mg PO QAM [facility] Stop: 01/11/20 10:29 Last Admin: 12/13/19 07:36 Dose: 25 mg Documented by: Potassium Chloride (Potassium Chloride 10 Meq Tabcr) 10 meq PO QID [facility] Stop: 01/09/20 12:59 Last Admin: 12/13/19 13:20 Dose: 10 meq Documented by: Tamsulosin HCl (Tamsulosin Hcl 0.4 Mg Cap) 0.4 mg PO PM [facility] Stop: 01/06/20 20:59 Last Admin: 12/12/19 20:36 Dose: 0.4 mg Documented by:
[2019-12-13] MEDS: TAMSULOSIN HCL 0.4 MG CAP PO SCH (22:06)
[2019-12-14 06:39] LABS: Hematocrit (blood only) 41.8 % (42-52); Hemoglobin 14.1 g/dL (14.0-18.0); Mean Corpuscular Hgb Conc 33.7 g/dL (32-36); Mean Corpuscular Volume 94.8 fL (80-100); Mean Platelet Volume 10.2 fL (7.4-10.4); Platelet Count 343 K/uL (130-400); RDW Standard Deviation 45.1 fL (36.4-46.3); Red Blood Count 4.41 M/uL (4.7-6.1); White Blood Count 11.43 K/uL (4.8-10.8)
[2019-12-14 07:21] LABS: BUN Creatinine Ratio 39.4 (10-20); Calcium 8.6 mg/dl (8.5-10.1); Creatinine Clr Calc Pharmacy 63.1 ml/min; Est GFR (African American) 99.5; Est GFR (Non-African American) 85.8; Magnesium 2.3 mg/dl (1.8-2.4); Potassium 4.5 mmol/L (3.5-5.1)
[2019-12-14] MEDS: cefTRIAXone SODIUM 1,000 MG in DEXTROSE 5% 50 ML IV SCH (08:32)
[2019-12-14] MEDS: AMIODARONE 200 MG TAB PO SCH ×2 (08:33→16:47)
[2019-12-14] MEDS: dexAMETHasone 6 MG in SYRINGE 0 ML IV SCH (08:33)
[2019-12-14] MEDS: ENOXAPARIN INJ 60 MG/0.6 ML SYR SC SCH (08:34)
[2019-12-14] MEDS: DOCUSATE SODIUM 100 MG CAP PO SCH (08:34)
[2019-12-14] MEDS: DOXYCYCLINE HYCLATE 100 MG CAP PO SCH (08:35)
--- NOTE | 2019-12-14 14:20 | Cardiology Progress Note ---
Date of Service December 14, 2019 Assessment & Plan (1) Paroxysmal atrial fibrillation: (2) Acute systolic CHF (congestive heart failure), NYHA class 4: (3) LBBB (left bundle branch block): Case discussed with hospitalist. Recommend amiodarone 200 mg twice daily x5 days then reduce dose to 200 mg once daily. Continue Toprol-XL 25 mg daily, lisinopril 10 mg daily at this time. Transition IV Lasix to furosemide 20 mg once daily. Instruct patient to monitor daily weight and record. Transition to Eliquis 5 mg twice daily. Repeat BMP in 5 to 7 days outpatient cardiology follow-up via telemedicine in 1 week. Consider addition of low-dose Aldactone during that visit. Further ischemic work-up after COVID-19 infection has resolved. Admission and Anticipated Discharge Date Admission Date: December 07, 2019 Subjective Case discussed with hospitalist. Respiratory status markedly improved. Patient appears euvolemic per discussion with hospitalist physician. IV diuretics currently on hold. Questions regarding discharge medications and follow-up. Results & Data ([facility]) Vital Signs (Past 12 Hours) Vital Signs Temp Pulse Resp BP Pulse Ox 12/14/19 12:01 36.7 C 54 L 18 111/75 12/14/19 08:48 36.7 C 53 L 18 106/67 98 12/14/19 04:17 36.4 C L 56 L 23 118/84 97
--- NOTE | 2019-12-14 16:42 | Discharge Summary ---
Date of Service December 14, 2019 Admission HPI Per Admitting Provider 74 [address]O male followed by Dr. Cam for Family Medicine. History of hypertension and other problems noted below. Strong family history of coronary artery disease. He was in his usual state of health until 11/29 when he developed some dyspnea. Dyspnea worsened and he developed a mild nonproductive cough. No fever. He was prescribed azithromycin on 12/03 for suspected bronchitis. Dyspnea has worsened. Now experiencing both orthopnea and dyspnea with minimal exertion. No chest pain. No dependent edema. ? mild palpitations. Persistent nonproductive cough. Seen in clinic today and found to be in new-onset atrial fibrillation. Referred to ED for evaluation and Cardiology was consulted. SARS-CoV-2 PCR was performed as preop screening in case cardiac cath was indicated; it was positive. No known exposure to COVID-19. Admission Exam Per Admitting Provider Constitutional: WD/WN, vitals as above no acute distress Eyes: PERRL, conjunctivae normal, anicteric sclerae ENMT: external ear and nose normal, oropharynx normal Neck: trachea midline, no thyromegaly Respiratory: normal respiratory effort, lungs clear to auscultation Cardiovascular: Rate/Rhythm: + tachycardic and + irregularly irregular Heart Sounds: + murmur (II/ sys murmur at base and LSB); no gallop and no cardiac rub Vessels: no JVD Extremities: normal capillary refill; no calf tenderness and no edema Gastrointestinal (Abdomen): normal bowel sounds, soft, nontender, no hepatosplenomegaly Musculoskeletal: Head/Neck/Chest: neck supple Extremities: strength 5/5 throughout; no cyanosis and no clubbing Skin: no rashes, warm and dry Neurologic: PERRL, EOMI no facial palsy no dysarthria or aphasia patellar DTR's 2/2 bilat Psychiatric: Orientation: alert and oriented x 3 Affect: euthymic affect Lymphatic: no cervical lymphadenopathy Principal Diagnosis Paroxysmal atrial fibrillation Acute systolic CHF (congestive heart failure), NYHA class 4 LBBB (left bundle branch block) Acute respiratory failure with hypoxia COVID-19 Pneumonia due to COVID 19 virus Metabolic encephalopathy-resolved. Discharge Exam CONSTITUTIONAL: WNWD, vitals as above, generally well-appearing EYES: normal conjunctivae, no scleral icterus ENT: external ear and nose normal,MMM RESPIRATORY: clear to auscultation bilaterally, no crackles, rales or wheezes, normal respiratory effort CARDIOVASCULAR: regular rate and rhythm, S1 and 2 heard without murmurs, gal lops or rubs, no JVD, no peripheral edema GASTROINTESTINAL: soft, nontender, nondistended, no guarding. MUSCULOSKELETAL: strength 5/5 throughout,ambulatory SKIN: warm and dry NEUROLOGIC: CN 2-12 grossly intact, no gross focal deficits. PSYCHIATRIC: alert cooperative and oriented to person, place and time. Euthymic mood, makes good eye contact, language grossly intact, recent and remote memory grossly intact. Discharge Data Allergies Allergy/AdvReac Type Severity Reaction Status Date / Time No Known Allergies Allergy Unverified 12/07/19 13:43 Consultations 12/07/19 14:14 ED Decision to Admit Stat 12/07/19 16:21 Consult Cardiology Routine 12/07/19 22:32 Consult Infectious Diseases Routine 12/08/19 08:59 Consult Case Management - Discharge Planning Routine 12/08/19 13:30 Consult Pulmonology Routine Hospital Course (1) Acute respiratory failure with hypoxia: (2) COVID-19: (3) Pneumonia due to COVID-19 virus: (4) Atrial fibrillation with rapid ventricular response: (5) Acute systolic CHF (congestive heart failure), NYHA class 4: (6) Encephalopathy: The patient is a 74-year-old man who presented and was treated with COVID- 19. He had worsening oxygenation of the first 24 hours of admission with associated bilateral pulmonary infiltrates and oxygen saturations as low as 81% on room air. CHF was also suspected. He presented in atrial fibrillation with rapid ventricular response. He has no known history of cardiovascular disease and troponin was only minimally elevated so acute DE was thought to be unlikely. An echocardiogram was performed with a normal right ventricle making a large pulmonary embolus unlikely. Cardiology was consulted and he was started on a diltiazem infusion for rate control. He converted to normal sinus rhythm and amiodarone therapy was initiated to maintain sinus rhythm. Metoprolol was used to wean him off diltiazem. The echocardiogram did reveal severe left ventricular systolic dysfunction with an EF less than 20%. It is most likely the patient had a chronic left ventricular systolic function that was not in an acute development but because he developed COVID-19 he subsequently went into atrial fibrillation causing an abrupt change in his previously stable clinical status. During his hospitalization he was administered a course of dexamethasone, 5-day course of remdesivir, and declined convalescent plasma. He received empiric therapy with a course of ceftriaxone and doxycycline for possible concomitant bacterial pneumonia. At time of discharge he was hemodynamically stable and afebrile and tolerating p.o. He was ambulating around the room without shortness of breath or lightheadedness or other symptoms. He was completely asymptomatic and physical exam was unremarkable on discharge exam. He was sent home in stable condition with close cardiology follow-up recommended and primary care follow-up recommended and he was sent home on quarantine with instructions to remain on quarantine for the remainder of the time required per the public health guidelines. At time of discharge she was oxygenating well on room air. Total Time Total Time Spent Total Time Spent (In Minutes): 60 Total Time Includes: Examination of the Patient, Discharge Planning, Medication Reconciliation and Communication With Other Providers Discharge Plan Discharge Items Patient Disposition: Home - Self-Care Reason For Visit: AF, COVID-19 Discharge Diagnosis: Paroxysmal atrial fibrillation Acute systolic CHF (congestive heart failure), NYHA class 4 LBBB (left bundle branch block) Acute respiratory failure with hypoxia COVID-19 Pneumonia due to COVID 19 virus Metabolic encephalopathy-resolved. Condition on Discharge: Good Activity: Resume your previous activity Non-emergency contact: Primary Care Provider Call non-emergency contact if: you have any medication questions, your symptoms worsen, your pain is not controlled, your pain is worsening, your pain is unusual for you, your pain is concerning for you and you have a fever Follow-up/Referrals: Mark Cam MD [Primary Care Provider] - (Date & Time 12/20/2019 12:20 PM Provider aMrk Cam MD Department Family Practice [facility] PLEASE NOTE: THIS IS A TELEPHONE APPOINTMENT. THE PHYSCIAN WILL CALL YOU AT THE APPOINTMENT TIME) Diet: Low Sodium (2gm) Addtl Attending Provider Instructions: Please take all medications as instructed on discharge list below. Please follow up with your primary care physician as instructed on date and time above. Please get nonfasting bloodwork at this time. Please follow-up with [facility] in the next two weeks. Please take your weight every day and notify someone at [facility] if you are gaining more than 5 pounds in two days or if you are concerned about developing symptoms. You will need a repeat chest xray in 4-6 weeks to ensure complete resolution of your pneumonia. This may be ordered through your primary care physician's office. You have been provided some supplementation of vitamin D and zinc which may be helpful in COVID-19 infection recovery. Please adhere to a low salt diet to avoid water retention. As discussed please self-quarantine at home until Wednesday, 12/17, per public health guidelines. After this, you may leave your home wearing a mask and observing all public health recommendations when interacting with the community. References for more information: https://www.health.[place].gov/topics/disease/coronavirus/Pages/Coronavirus.aspx https://www.cdc.gov/coronavirus/2019-ncov/index.html It was a pleasure taking care of you! Please call if you have any questions or problems. You can reach a [facility] hospitalist on duty at [facility] 24 hours a day by calling [phone]. Take care of yourself. Marquita Beck, [facility] Hospitalist Addtl [employer] Provider Instructions: Call 911 and go to the Emergency Room if: * You have tightness or pain in your chest that does not go away with rest or Nitroglycerin * You are very short of breath even with rest Call your doctor if any of the following symptoms or problems start or get worse: * Shortness of breath or difficulty breathing * Wake up at night short of breath * Chest pain * Cough * Swelling of your hands, fee, or legs * More fatigued or tired with your normal activity * Palpitations - sudden fast heart beats WEIGHT * Weigh yourself every morning after using the bathroom. * Use the same scale. * Wear the same amount of clothing. * Write your weight down on your chart. * Call your doctor if you gain more than 2-3 pounds in 1-2 days. MEDICATIONS * Use this discharge instruction sheet for instructions. * Take your medications at the time your doctor ordered. * Do not skip a dose of your medicines. * If you miss a dose of medicine, take as soon as possible, but DO NOT DOUBLE A DOSE. * Read your medicine information when you get home. * Know all of the side effects of your medicine. * Call your doctor's office if you have any side effects. * Be sure all of your doctors know what medicine and herbs you take (including cold, flu, and herbal medicine). * Pain Medicine: If you do not get relief from your pain, please call your doctor for help. Take the following with you to your follow-up doctor appointments: * Weight Chart * Medication List * List of questions Do not drink excessive alcohol, beer or wine. Home Isolation COVID-19 Instructions The following information about Home Isolation is from the CDC Website: https://www.cdc.gov/coronavirus/2019-ncov/hcp/qwbidgfp-mmazlyb-yphegf.html Stay home except to get medical care People who are mildly ill with COVID-19 are able to isolate at home during their illness. You should restrict activities outside your home, except for getting medical care. Do not go to work, school, or public areas. Avoid using public transportation, ride-sharing, or taxis. Separate yourself from other people and animals in your home People: As much as possible, you should stay in a specific room and away from other people in your home. Also, you should use a separate bathroom, if available. Animals: You should restrict contact with pets and other animals while you are sick with COVID-19, just like you would around other people. Although there have not been reports of pets or other animals becoming sick with COVID-19, it is still recommended that people sick with COVID-19 limit contact with animals until more information is known about the virus. When possible, have another member of your household care for your animals while you are sick. If you are sick with COVID-19, avoid contact with your pet, including petting, snuggling, being kissed or licked, and sharing food. If you must care for your pet or be around animals while you are sick, wash your hands before and after you interact with pets and wear a face mask. Call ahead before visiting your doctor If you have a medical appointment, call the healthcare provider and tell them that you have or may have COVID-19. This will help the healthcare providers of [facility] take steps to keep other people from getting infected or exposed. Wear a face mask You should wear a face mask when you are around other people (e.g., sharing a room or vehicle) or pets and before you enter a healthcare providers office. If you are not able to wear a face mask (for example, because it causes trouble breathing), then people who live with you should not stay in the same room with you, or they should wear a face mask if they enter your room. Cover your coughs and sneezes Cover your mouth and nose with a tissue when you cough or sneeze. Throw used tissues in a lined trash can. Immediately wash your hands with soap and water for at least 20 seconds or, if soap and water are not available, clean your hands with an alcohol-based hand chip washer that contains at least 60% alcohol. Clean your hands often Wash your hands often with soap and water for at least 20 seconds, especially after blowing your nose, coughing, or sneezing; going to the bathroom; and before eating or preparing food. If soap and water are not readily available, use an alcohol-based hand chip washer with at least 60% alcohol, covering all surfaces of your hands and rubbing them together until they feel dry. Soap and water are the best option if hands are visibly dirty. Avoid touching your eyes, nose, and mouth with unwashed hands. Avoid sharing personal household items You should not share dishes, drinking glasses, cups, eating utensils, towels, or bedding with other people or pets in your home. After using these items, they should be washed thoroughly with soap and water. Clean all high-touch surfaces everyday High touch surfaces include counters, tabletops, doorknobs, bathroom fixtures, toilets, phones, keyboards, tablets, and bedside tables. Also, clean any surfaces that may have blood, stool, or body fluids on them. Use a household cleaning spray or wipe, according to the label instructions. Labels contain instructions for safe and effective use of the cleaning product including precautions you should take when applying the product, such as wearing gloves and making sure you have good ventilation during use of the product. Monitor your symptoms Seek prompt medical attention if your illness is worsening (e.g., difficulty breathing).Beforeseeking care, call your healthcare provider and tell them that you have, or are being evaluated for, COVID-19. Put on a face mask before you enter the facility. These steps will help the healthcare providers office to keep other people in the office or waiting room from getting infected or exposed. Ask your healthcare provider to call the local or state health department. Persons who are placed under active monitoring or facilitated self- monitoring should follow instructions provided by their local health department or occupational health professionals, as appropriate. When working with your local health department check their available hours. If you have a medical emergency and need to call 911, notify the dispatch personnel that you have, or are being evaluated for COVID-19. If possible, put on a face mask before emergency medical services arrive. Discontinuing home isolation Patients with confirmed COVID-19 should remain under home isolation precautions until the risk of secondary transmission to others is thought to be low. The decision to discontinue home isolation precautions should be made on a case-by-c ase basis, in consultation with healthcare providers and [facility] health departments. Pending Studies at Discharge: No Stand-Alone Forms: My [facility] Medications and DC Order Prescriptions: New amiodarone 200 mg Tablet 200 mg PO BIDM Qty: 10 RF: 0 amiodarone 200 mg tablet 200 mg PO DAILY Qty: 30 RF: 1 lisinopril 5 mg tablet 5 mg PO DAILY Qty: 30 RF: 1 metoprolol succinate 25 mg Tablet Extended Release 24 Hr 25 mg PO QAM Qty: 30 RF: 1 cholecalciferol (vitamin D3) 25 mcg (1,000 unit) capsule 25 mcg PO DAILY Qty: 30 RF: 1 zinc sulfate 220 (50) mg capsule 220 mg PO DAILY Qty: 30 RF: 1 furosemide [Lasix] 20 mg tablet 20 mg PO DAILY Qty: 30 RF: 1 Eliquis 5 mg tablet 5 mg PO Q12H Qty: 60 RF: 1 Continued tamsulosin 0.4 mg Capsule 0.4 mg PO PM Qty: 0 RF: 0 multivitamin Tablet 1 tab PO PM Qty: 0 RF: 0 Discontinued lisinopril-hydrochlorothiazide 10-12.5 mg Tablet 1 tab PO PM Qty: 0 RF: 0 meloxicam 15 mg Tablet 15 mg PO PM RF: 0 vitamin E 1,000 unit Tablet 1 tab PO PM RF: 0 Discharge Orders: Discharge Order (Routine); Ordered 12/14/19 Ordered By: Marquita Arevalo/Other Patient Handouts: COVID-19 Home Care, ED Atrial Fibrillation, COVID-19 Make Face Mask, Disinfecting Your Home of COVID-19 Admission Data Admit Date/Time: 12/07/19 14:37 Attending Provider: Marquita Beck Admit Provider: Aguilar Valadez Primary Care Provider: Mark Cam Other Providers: Aguilar Valadez ; Sorin Quiroz ; Triston Gordon ; Tonie Ruby ; Hammad Potts I. ; Garo Barnes II ; Cortney Philip ; Travis Cai ; Ignacio Rodriguez Other Interventions: Discharge Summary Assessment (RN) Last Done: 12/14/19 17:52
[2019-12-14] MEDS: METOPROLOL SUCC 25MG EXT REL TAB PO SCH (16:48)
== END 2019-12-14 18:20 | disposition home or self-care (01) | DRG 308 ==
LOC: ED 11:52 → SUATTDRO 14:37 → 2E 14:37